=== PATIENT | male | born 1955 | race African-American/Black ===

== ENCOUNTER → 2016-08-12 | Outpatient (CLI) | payer MEDICARE ==
[~2016-08-12] MED LIST: ACHD5005 PO; BP MED; CYCL10TA9 PO; DILT180T PO; DLT30T PO; FENO145T2 PO; IBP800T PO; LISI1TAB10 PO; MELO15TA39 PO; METO-333 PO; METO-352 PO; METO25TA2 PO; PARO20TA4 PO; PARO20TA57 PO; PARO40TA PO; PARO40TA2 PO; RISP3TAB3 PO; RSP2T PO
--- NOTE | 2016-08-12 14:24 | Diagnostic Imaging Report ---
PROCEDURE: US abdomen complete. TECHNIQUE: Multiple real-time grayscale images were obtained over the abdomen in various projections. INDICATION: Hepatitis C. FINDINGS: The pancreas is not well evaluated on this exam. The liver demonstrates fairly homogeneous parenchyma with no focal mass. Hepatopetal flow in the portal vein is seen. Craniocaudal measurement of 18 cm in the liver and is near the upper limits of normal. The gallbladder demonstrates a nonmobile hyperechoic 1 cm lesion and sessile polypoid appearance in the fundus with no associated shadowing and may relate to adherent sludge or a polyp. The CBD is 3 mm in caliber. The gallbladder wall demonstrate [id number]-vw-vmibleyy thickening up to 7 mm. There is no pericholecystic fluid, however. Sonographic Beasley sign is reportedly negative. The spleen is 9.5 cm in length, normal. The aorta is obscured by bowel gas. The visualized portion of the IVC has flow in it. The right kidney is 10.3 cm in length and the left kidney is 9.9 cm in length with no hydronephrosis or focal lesion. No fluid collection or ascites. IMPRESSION: 1. The gallbladder fundus 1 cm hyperechoic lesion with the no shadowing, may relate to adherent sludge or a gallbladder polyp. 2. A bladder wall thickening is seen. This is nonspecific and may relate to chronic hepatic disease. 3. No focal hepatic mass is identified. Dictated by: Dictated on workstation # [id number]
== END ==
LOC: RAD 10:19
PROVIDERS: ATTEND Nurse Practitioner Adult Health
DX: B18.2 Chronic viral hepatitis C (principal)
CPT/HCPCS: 76700

== ENCOUNTER → 2016-11-30 | Outpatient (CLI) | payer MEDICARE ==
[~2016-11-30] MED LIST changes: +GADOXETATE 2.5 MMOL/10 ML (EOVIST) IV ONE
--- NOTE | 2016-11-30 11:57 | Diagnostic Imaging Report ---
PROCEDURE: MR imaging abdomen with and without contrast. TECHNIQUE: Multiplanar, multisequence MR imaging of the abdomen was performed with and without contrast. INDICATION: Elevated AFP. Abnormal ultrasound of the gallbladder, focal sludge. Chronic hepatitis C. 8 mL of Eovist is administered intravenously. FINDINGS: The gallbladder demonstrates no stones or wall thickening. The previously seen focal sludge on ultrasound is not present at this time. There is no extra or intrahepatic biliary dilatation. The liver has homogeneous intensity of its parenchyma with no gross imaging features of cirrhosis. Postcontrast enhancement images demonstrate no enhancing mass. The pancreas demonstrate a pancreatic body 6 mm T2 bright lesion with no enhancement compatible with a tiny cystic lesion, of uncertain significance. The spleen is not enlarged. The portal vein appears patent. The hepatic veins also appear patent. There is no ascites. The abdominal aorta is normal in caliber. No para-aortic significantly enlarged lymph node is seen. The kidneys have symmetric enhancement. No hydronephrosis. IMPRESSION: No significant abnormality. Dictated by: Dictated on workstation # [id number]
== END ==
LOC: RAD 09:07
PROVIDERS: ATTEND Nurse Practitioner Adult Health
DX: R77.2 Abnormality of alphafetoprotein (principal); R93.2 Abnormal findings on diagnostic imaging of liver and biliary tract; B18.9 Chronic viral hepatitis, unspecified
CPT/HCPCS: 74183

== ENCOUNTER → 2016-12-16 | Outpatient (CLI) | payer MEDICARE ==
[~2016-12-16] MED LIST changes: -GADOXETATE 2.5 MMOL/10 ML (EOVIST) IV ONE
--- NOTE | 2016-12-16 14:43 | Diagnostic Imaging Report ---
Indication: Left leg pain for several months AP and lateral views of the left lower leg are obtained. FINDINGS: No acute fracture or dislocation is identified. No abnormal lytic or sclerotic focus is seen, and there is no radiopaque foreign body. IMPRESSION: No acute abnormality. Dictated by: Dictated on workstation # [id number]
== END ==
LOC: RAD 14:28
PROVIDERS: ATTEND Family Medicine
DX: M79.662 Pain in left lower leg (principal)
CPT/HCPCS: 73590

== ENCOUNTER → 2017-02-08 | Outpatient (CLI) | payer MEDICARE ==
--- NOTE | 2017-02-08 16:28 | Diagnostic Imaging Report ---
PROCEDURE: US Bilateral lower extremity arterial. TECHNIQUE: Multiple real-time grayscale images are obtained through both lower extremity arterial systems with color Doppler imaging and color Doppler spectral analysis. INDICATION: Claudication. FINDINGS: The femoropopliteal segments demonstrate no significant plaque seen on grayscale images. Color Doppler demonstrates patency from the common femoral to dorsalis pedis and posterior tibial arteries on both sides. There are triphasic waveforms throughout seen. There is normal range of velocities in the right lower extremity from 62 to 135 cm/s and on the left as well ranging from 57 to 100 cm/s. IMPRESSION: No ultrasound evidence of high-grade stenosis. Dictated by: Dictated on workstation # [id number]
== END ==
LOC: RAD 12:34
PROVIDERS: ATTEND Family Medicine
DX: I73.9 Peripheral vascular disease, unspecified (principal); F17.210 Nicotine dependence, cigarettes, uncomplicated
CPT/HCPCS: 93925

== ENCOUNTER → 2017-07-19 | Outpatient (CLI) | payer MEDICARE ==
[~2017-07-19] VITALS: Ht 167.6 cm; Wt 95.3 kg
[~2017-07-19] MED LIST changes: +REGADENOSON 0.4 MG/5 ML SYR (LEXISCAN) IV ONE
[2017-07-19] MEDS: CATHETER FLUSH 10 ML SYR IV PRN ×2 (11:25→13:07)
[2017-07-19 13:05] VITALS: BP 191/107
--- NOTE | 2017-07-19 19:19 | STRESS TEST ---
DATE OF SERVICE: 07/19/2017 PROCEDURE: Resting and post regadenoson technetium-99m Tetrofosmin SPECT CT imaging. ORDERING PHYSICIAN: Dr. Fleming. PRIMARY PHYSICIAN: Dr. Lara. CLINICAL DIAGNOSES: Shortness of breath, hyperlipidemia, hypertension, paroxysmal atrial fibrillation. Baseline images were carried out after injection of 10.21 mCi of technetium-99m Tetrofosmin. This was followed by 0.4 mg regadenoson and 31.1 mCi of technetium-99m Tetrofosmin for stress imaging. The electrocardiogram showed sinus rhythm with nonspecific T-wave abnormality at baseline. It did not change significantly with the regadenoson infusion. Review of images at rest and following stress does not indicate perfusion defects consistent with significant myocardial ischemia or infarction. Some degree of diaphragmatic attenuation is seen both at rest and following regadenoson infusion. Gated images show normal global left ventricular systolic function with an ejection fraction of 58%. TID is absent (1). CONCLUSIONS: 1. No evidence of any significant myocardial ischemia or infarction on this study. 2. Normal regional wall motion. 3. Normal global left ventricular systolic function with a calculated ejection fraction of 58%. Job ID: [id number] DocumentID: [id number] Dictated Date: 07/19/2017 16:22:46 Criminal Justice Professor Date: 07/19/2017 19:18:24 Dictated By: DEE FLEMING MD, MA, FACP, FACC,
== END ==
LOC: CARD 09:43
PROVIDERS: ATTEND Internal Medicine Cardiovascular Disease
DX: I10 Essential (primary) hypertension (principal); R06.02 Shortness of breath; I48.0 Paroxysmal atrial fibrillation; E66.9 Obesity, unspecified; F17.290 Nicotine dependence, other tobacco product, uncomplicated; E78.5 Hyperlipidemia, unspecified; F31.9 Bipolar disorder, unspecified
CPT/HCPCS: 78452; 93017; 93306

== ENCOUNTER → 2018-02-02 | Outpatient (CLI) | payer MEDICARE ==
[~2018-02-02] MED LIST changes: -REGADENOSON 0.4 MG/5 ML SYR (LEXISCAN) IV ONE
--- NOTE | 2018-02-02 16:31 | Diagnostic Imaging Report ---
INDICATION: Left hip pain FINDINGS: Two views of the left hip show no fracture, dislocation or other acute abnormalities. IMPRESSION: Negative left hip. Dictated by: Dictated on workstation # [id number]
--- NOTE | 2018-02-02 18:17 | Diagnostic Imaging Report ---
CLINICAL INDICATION: Patient complains mostly of left hip pain for seven months. EXAM: X-ray of the lumbar spine, three views. COMPARISON: None. FINDINGS: There is no acute lumbar spine fracture. There is roughly 5 mm of grade 1 anterolisthesis of L2 on L3. There is a transitional lumbosacral vertebra which should be designated as L5. There is appearance of pseudoarticulation of the prominent right and left transverse processes of the L5 vertebra with associated sclerosis. There are mild to moderately hypertrophic spurs anteriorly involving the L3, L4, and L5 vertebrae. There is moderate loss of intervertebral disc height at the L4-L5 level. There is incompletely imaged right curvature of the thoracic spine. Sacroiliac joints show no significant abnormality. IMPRESSION: 1: There is no acute lumbar spine fracture. 2: There is grade 1 anterolisthesis of L2 on L3 with no pars defects seen. 3: There is lumbar spine degenerative disease, most pronounced involving the lower lumbar region. 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 Dictated by: Dictated on workstation # [id number]
== END ==
LOC: RAD 13:31
PROVIDERS: ATTEND Family Medicine
DX: M25.552 Pain in left hip (principal); M43.16 Spondylolisthesis, lumbar region; M47.26 Other spondylosis with radiculopathy, lumbar region
CPT/HCPCS: 72100; 73502

== ENCOUNTER → 2018-02-09 | Outpatient (CLI) | payer MEDICAID, MEDICARE ==
--- NOTE | 2018-02-09 18:54 | Diagnostic Imaging Report ---
PROCEDURE: MRI lumbar spine. TECHNIQUE: Multiplanar, multisequence MRI of the lumbar spine was performed without contrast. EXAMINATION: Chronic low back pain radiating down the left leg. FINDINGS: The alignment of the lumbar spine is normal. The vertebral body heights are well maintained. There is no spondylolysis or spondylolisthesis. No fractures are identified. Conus medullaris is seen at L1 and is normal in appearance. The T12-L1 and L1-2 discs are normal in height, signal intensity and morphology. At L2-3 there is some broad-based annular bulging, facet disease and thickening of the ligament flavum. There is moderate spinal stenosis with encroachment upon the lateral recess, bilaterally. There is mild bilateral neural foraminal encroachment. At L3-4 there is loss of disc height and signal intensity with some broad-based annular bulging. There is facet disease and thickening of the ligamentum flavum. There is mild central spinal stenosis with encroachment upon the lateral recess, bilaterally. There is moderate bilateral neuroforaminal encroachment. At L4-5 there is loss of disc height and signal intensity with some broad-based annular bulging. There is facet disease and thickening of the ligamentum flavum. There is mild central spinal stenosis with encroachment upon the lateral recess, bilaterally. There is moderate bilateral foraminal encroachment. The L5-S1 disc is unremarkable. The abdominal aorta is nonaneurysmal. Kidneys are unremarkable. IMPRESSION: Moderate lumbar spondylosis and multilevel degenerative disc disease, as detailed above. Dictated by: Dictated on workstation # [id number]
== END ==
LOC: RAD 17:36
PROVIDERS: ATTEND Family Medicine
DX: M48.061 Spinal stenosis, lumbar region without neurogenic claudication (principal); M51.16 Intervertebral disc disorders with radiculopathy, lumbar region; M47.26 Other spondylosis with radiculopathy, lumbar region; M99.73 Connective tissue and disc stenosis of intervertebral foramina of lumbar region; M53.86 Other specified dorsopathies, lumbar region
CPT/HCPCS: 72148

== ENCOUNTER 2018-03-01 20:26 | Emergency (ER) | payer MEDICARE ==
[~2018-03-01] VITALS: Ht 167.6 cm; Wt 93.9 kg
--- OUTSIDE RECORDS SUMMARY | 2018-03-01 20:31 | XMS REPORT | Clinical Summary ---
Author Author [facility] Address Unknown Phone Unavailable Care Team Providers Care Windows Server Architect Name Role Phone Lis Candelario MD Unavailable Mary Lara MD PCP Jono Van MD Unavailable Source Comments Some departments are not documenting in the electronic medical record. If you do not see the information that you expected, contact Release of Information in the Health Information Management department at [phone] for further assistance in locating additional records.[facility] Allergies No Known Allergies Current Medications Prescription Sig. Disp. Refills Start End Date Status Date risperiDONE (RISPERDAL) 2 Take 2 mg by mouth twice Active mg tablet daily. diltiazem CD (CARDIZEM Take 180 mg by mouth Active CD) 180 mg capsule daily. diclofenac sodium DR Take 75 mg by mouth twice Active (VOLTAREN) 75 mg tablet daily. Take with food. trihexyphenidyl (ARTANE) Take 2 mg by mouth twice Active 2 mg tablet daily. PARoxetine (PAXIL) 20 mg Take 20 mg by mouth Active tablet daily. metoprolol XL (TOPROL XL) Take 50 mg by mouth Active 50 mg extended release daily. tablet Active Problems Problem Noted Date Elevated AFP 02/01/2017 Chronic hepatitis C without hepatic coma (HCC) 09/08/2016 Tobacco abuse 09/08/2016 History of ETOH abuse 09/08/2016 Type 2 diabetes mellitus without complication (HCC) 09/08/2016 Essential hypertension 09/08/2016 Bipolar affective disorder in remission (HCC) 09/08/2016 Schizophrenia (HCC) 09/08/2016 Immunizations Name Dates Previously Given Next Due Hepatitis B Vaccine Adult 02/01/2017 3 Dose IM Social History Tobacco Use Types Packs/Day Years Used Date Current Every Day Smoker Cigarettes 1 20 Tobacco Cessation: Ready to Quit: Yes Alcohol Use Drinks/Week oz/Week Comments No Sex Assigned at Date Recorded Not on file Last Filed Vital Signs Vital Sign Reading Time Taken Blood Pressure 144/91 02/01/2017 12:14 PM CDT Pulse 69 02/01/2017 12:11 PM CDT Temperature 37.6 C (99.6 F) 02/01/2017 12:11 PM CDT Respiratory Rate 16 02/01/2017 12:11 PM CDT Oxygen Saturation 98% 02/01/2017 12:11 PM CDT Inhaled Oxygen - - Concentration Weight 97 kg (213 lb 12.8 oz) 02/01/2017 12:11 PM CDT Height 167.6 cm (5' 5.98") 02/01/2017 12:11 PM CDT Body Mass Index 34.52 02/01/2017 12:11 PM CDT Plan of Treatment Health Maintenance Due Date Last Done Comments PHYSICAL (COMPREHENSIVE) 10/10/1963 EXAM PERTUSSIS VACCINE 10/10/1967 TETANUS VACCINE 1973 DILATED EYE EXAM 1974 FOOT EXAM 1974 HBA1C 1974 MICROALBUMIN 1974 PNEUMONIA VACCINE (DM) 1974 COLORECTAL CANCER 2006 SCREENING SHINGLES RECOMBINANT 2006 VACCINE (1 of 2) INFLUENZA VACCINE 12/14/2017 HIV SCREENING Completed 08/03/2016, 01/05/2012 Results Not on filefrom Last 3 Months
--- OUTSIDE RECORDS SUMMARY | 2018-03-01 20:32 | XMS REPORT ---
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 397022058 Problem Tardive dyskinesia G24.01 Active 736922766 Problem Schizoaffective disorder, unspecified condition F25.9 Active 97843330 ALLERGIES No Known Allergies ENCOUNTERS Encounter Location Date Diagnosis [facility] [id number] [place] [id number] Oct, Dental examination Z01.20 [facility] [address] [address] Jul, [facility] [address] [address] Jul, Encounter for immunization Z23 [facility] [address] [address] May, [facility] [address] [address] May, 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 and Tardive dyskinesia G24.01 [facility] [address] [address] Apr, Schizoaffective disorder, unspecified condition F25.9 [facility] [address] [address] Feb, Encounter for immunization Z23 [facility] [address] [address] Jul, [facility] [address] [place] [address] Feb, [facility] [address] [facility] [id number] [address] Mar, [facility] [address] [facility] [id number], [place] [address] Feb, IMMUNIZATIONS No Known Immunizations SOCIAL HISTORY Never Assessed REASON FOR VISIT roosevelt/abscess PLAN OF CARE Activity Details Follow Up prn Reason:CANDIDA with HYG VITAL SIGNS Blood pressure systolic 140 mmHg 2017-10-28 Blood pressure diastolic 82 mmHg 2017-10-28 MEDICATIONS Medication Instructions Dosage Frequency Start Date End Date Duration Status Amoxicillin 500 mg Orally every 8 hrs 1 capsule 8h 07 days Active Ingrezza 40 MG Orally Once a day take 40mg every night for one week then take 80mg every night 24h May, 30 day(s) Active Trihexyphenidyl HCl 2 MG Orally 2 times a day 1 tablet with meals 12h Active Toprol XL 50 MG Orally Once a day 1 tablet 24h Active Risperdal 2 MG Orally 2 times a day 1 tablet 12h Active Risperidone Active Diclofenac 75mg Orally 2 times a day 1 tablet 12h Not-Taking Paxil 20 MG Orally Once a day 1 tablet in the morning 24h Active Lyrica 75 MG Orally Twice a day 2 capsules 12h Not-Taking Cardizem LA 180 MG Orally Once a day 1 tablet at the same time each day 24h Active RESULTS No Results PROCEDURES Procedure Date Ordered Result Body Site LTD ORAL EVALUATION - PROBLEM FOCUS October 28, 2017 INTRAORL-PERIAPICAL 1 FILM [id number] October 28, 2017 INSTRUCTIONS MEDICATIONS ADMINISTERED No Known Medications MEDICAL (GENERAL) HISTORY Type Description Date Medical History HTN
--- OUTSIDE RECORDS SUMMARY | 2018-03-01 20:32 | XMS REPORT ---
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 054520328 Problem Tardive dyskinesia G24.01 Active 369295480 Problem Schizoaffective disorder, unspecified condition F25.9 Active 71104564 ALLERGIES No Information ENCOUNTERS Encounter Location Date Diagnosis [facility] [id number] [place] [id number] Oct, Dental examination Z01.20 [facility] [address] [address] Jul, [facility] [address] [address] Jul, Encounter for immunization Z23 [facility] [id number] [place] [address] May, [facility] [id number] [place] [address] May, 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 [id number] [place] [address] Feb, [facility] [address] [facility] [id number] [address] Mar, [facility] [address] [facility] [id number] [place] [address] Feb, IMMUNIZATIONS No Known Immunizations SOCIAL HISTORY Never Assessed REASON FOR VISIT B[facility] CARE VITAL SIGNS MEDICATIONS Unknown Medications RESULTS No Results PROCEDURES No Known procedures INSTRUCTIONS MEDICATIONS ADMINISTERED No Known Medications MEDICAL (GENERAL) HISTORY Type Description Date Medical History HTN
--- OUTSIDE RECORDS SUMMARY | 2018-03-01 20:32 | XMS REPORT ---
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 and Tardive dyskinesia G24.01 [facility] [id number] [place] [address] Apr, Schizoaffective disorder, unspecified condition F25.9 [facility] [id number] [place] [address] Feb, Encounter for immunization Z23 [facility] [id number] [place] [address] Jul, [facility] [address] [facility] [id number] [place] [address] Feb, [facility] [address] [facility] [id number] [place] Mar, [facility] [address] [facility] [id number] [place] Feb, IMMUNIZATIONS Vaccine Route Administration Date Status HEP B (ADULT) IM Intramuscular August 03, 2017 Administered SOCIAL HISTORY Never Assessed REASON FOR VISIT Immunization(s)--[facility] PLAN OF CARE VITAL SIGNS MEDICATIONS Unknown Medications RESULTS No Results PROCEDURES Procedure Date Ordered Result Body Site HEP B (ADULT) August 03, 2017 SINGLE IMMUNIZATION ADMIN August 03, 2017 INSTRUCTIONS MEDICATIONS ADMINISTERED No Known Medications MEDICAL (GENERAL) HISTORY Type Description Date Medical History HTN
--- OUTSIDE RECORDS SUMMARY | 2018-03-01 20:32 | XMS REPORT ---
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 604769782 Problem Tardive dyskinesia G24.01 Active 308161715 Problem Schizoaffective disorder, unspecified condition F25.9 Active 28868846 ALLERGIES No Information ENCOUNTERS Encounter Location Date Diagnosis [place] [id number] [place] [address] Jul, [facility] [address] [address] Jul, Encounter for immunization Z23 [facility] [id number] [place] [address] May, [facility] [id number] [place] [address] May, 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 and Tardive dyskinesia G24.01 [facility] [id number] [place] [address] Apr, Schizoaffective disorder, unspecified condition F25.9 [facility] [id number] [place] [address] Feb, Encounter for immunization Z23 [facility] [id number] [place] [address] Jul, [facility] [id number] [place] [address] Feb, [facility] [id number] [place] [address] Mar, [facility] [address] [facility] [id number], [place] [address] Feb, IMMUNIZATIONS No Known Immunizations SOCIAL HISTORY Never Assessed REASON FOR VISIT BH intake, Hears voices and "uncontrollable crying." PLAN OF CARE Activity Details Follow Up prn Reason: VITAL SIGNS MEDICATIONS Medication Instructions Dosage Frequency Start Date End Date Duration Status Risperidone Active RESULTS No Results PROCEDURES Procedure Date Ordered Result Body Site [facility] VISIT MENTAL HEALTH ESTAB PT Apr 19, 2017 Psych diagnostic evaluation, established patient Apr 19, 2017 INSTRUCTIONS MEDICATIONS ADMINISTERED No Known Medications MEDICAL (GENERAL) HISTORY Type Description Date Medical History HTN
--- OUTSIDE RECORDS SUMMARY | 2018-03-01 20:32 | XMS REPORT ---
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 434913808 Problem Tardive dyskinesia G24.01 Active 429091054 Problem Schizoaffective disorder, unspecified condition F25.9 Active [id number] ALLERGIES No Known Allergies ENCOUNTERS Encounter Location Date Diagnosis [facility] [id number] [place] [id number] Oct, Dental examination Z01.20 [facility] [id number] [place] [phone] Jul, [facility] [address] [address] Jul, Encounter for immunization Z23 [facility] [id number] [place] [phone] May, [facility] [id number] [place] [phone] May, 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 and Tardive dyskinesia G24.01 [facility] [id number] [place] [address] Apr, Schizoaffective disorder, unspecified condition F25.9 [facility] [id number] [place] [phone] Feb, Encounter for immunization Z23 [facility] [id number] [place] [phone] Jul, [facility] [address] [facility] [id number] [place] [address] Feb, [facility] [address] [facility] [id number] Mar, [facility] [address] [facility] [id number], [place] [address] Feb, IMMUNIZATIONS No Known Immunizations SOCIAL HISTORY Never Assessed REASON FOR VISIT intake-Dayday [facility] PLAN OF CARE Activity Details Follow Up 4 Weeks Reason: VITAL SIGNS Height 66.5 in 2017-05-19 Weight 210.2 lbs 2017-05-19 Heart Rate 74 bpm 2017-05-19 Respiratory Rate 18 2017-05-19 BMI 33.42 kg/m2 2017-05-19 Blood pressure systolic 132 mmHg 2017-05-19 Blood pressure diastolic 78 mmHg 2017-05-19 MEDICATIONS Medication Instructions Dosage Frequency Start Date End Date Duration Status Risperidone Active Cardizem LA 180 MG Orally Once a day 1 tablet at the same time each day 24h Active Toprol XL 50 MG Orally Once a day 1 tablet 24h Active Risperdal 2 MG Orally 2 times a day 1 tablet 12h Active Paxil 20 MG Orally Once a day 1 tablet in the morning 24h Active Diclofenac 75mg Orally 2 times a day 1 tablet 12h Not-Taking Lyrica 75 MG Orally Twice a day 2 capsules 12h Not-Taking Trihexyphenidyl HCl 2 MG Orally 2 times a day 1 tablet with meals 12h Active Ingrezza 40 MG Orally Once a day take 40mg every night for one week then take 80mg every night 24h May, 30 day(s) Active RESULTS No Results PROCEDURES Procedure Date Ordered Result Body Site [facility] V[facility]IT ESTABLISHED PATIENT May 19, 2017 INSTRUCTIONS MEDICATIONS ADMINISTERED No Known Medications MEDICAL (GENERAL) HISTORY Type Description Date Medical History HTN
--- OUTSIDE RECORDS SUMMARY | 2018-03-01 20:32 | XMS REPORT ---
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 602192504 Problem Tardive dyskinesia G24.01 Active 238735861 Problem Schizoaffective disorder, unspecified condition F25.9 Active [id number] ALLERGIES No Information ENCOUNTERS Encounter Location Date Diagnosis [facility] [id number] [place] [id number] Oct, Dental examination Z01.20 [facility] [address] [address] Jul, [facility] [address] [address] Jul, Encounter for immunization Z23 [facility] [id number] [place] [address]- [phone] May, [facility] [id number] [place] [address] 9[address]69- [address] May, 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 and Tardive dyskinesia G24.01 [facility] [id number] [place] [address]- [phone] Apr, Schizoaffective disorder, unspecified condition F25.9 [facility] [id number] [place] [address] 96[address]- [address] Feb, Encounter for immunization Z23 [facility] [id number] [place] [address] 270[address]- [address] Jul, [facility] [address] [facility] [id number] [place], [place] [address] Feb, [facility] [address] [facility] [id number] [address] Mar, [facility] [address] [facility] [id number] [place] [address] Feb, IMMUNIZATIONS No Known Immunizations SOCIAL HISTORY Never Assessed REASON FOR VISIT FYI PLAN OF CARE VITAL SIGNS MEDICATIONS Unknown Medications RESULTS No Results PROCEDURES No Known procedures INSTRUCTIONS MEDICATIONS ADMINISTERED No Known Medications MEDICAL (GENERAL) HISTORY Type Description Date Medical History HTN
--- OUTSIDE RECORDS SUMMARY | 2018-03-01 20:33 | XMS REPORT | Continuity of Care Document ---
Author Author [facility] Organization [facility] Address Unknown Phone Unavailable Allergies Active Description Code Type Severity Reaction Onset Reported/Identified Relationship to Patient Clinical Status Yes No Known Drug Allergies [id number] Drug Allergy Unknown N/A 02/10/2016 Medications There is no data. Problems Date Dx Coded Attending Type Code Diagnosis Diagnosed By 10/05/2010 Ot 782.2 LOCAL SUPRFICIAL SWELLNG 12/07/2010 Ot 272.4 HYPERLIPIDEMIA NEC/NOS 12/07/2010 Ot 305.1 TOBACCO USE DISORDER 12/07/2010 Ot 401.9 HYPERTENSION NOS 12/07/2010 Ot 427.31 ATRIAL FIBRILLATION 12/07/2010 Ot 794.30 ABN CARDIOVASC STUDY NOS 12/07/2010 Ot V58.69 OTH MED,LT, CURRENT USE 03/22/2011 Ot 786.50 CHEST PAIN NOS 03/22/2011 Ot 786.52 PAINFUL RESPIRATION 12/22/2011 Ot 724.4 LUMBOSACRAL NEURITIS NOS 12/22/2011 Ot V57.1 PHYSICAL THERAPY NEC 12/19/2012 EMILIANO SUAZO DO Ot 211.3 BENIGN NEOPLASM LG BOWEL 12/19/2012 EMILIANO SUAZO DO Ot 578.1 BLOOD IN STOOL 12/19/2012 EMILIANO SUAZO DO Ot V16.0 FAMILY HX-GI MALIGNANCY 07/06/2014 Ot 401.9 07/06/2014 Ot 427.31 07/06/2014 Ot 396.3 07/06/2014 Ot 397.0 07/06/2014 Ot 401.9 07/06/2014 Ot 427.31 07/06/2014 Ot 428.30 07/06/2014 Ot 070.70 07/06/2014 EMILIANO SUAZO DO Ot V72.84 07/08/2014 Ot 786.05 07/08/2014 Ot 786.2 07/10/2014 Ot 786.05 07/10/2014 Ot 786.2 08/15/2014 Ot 401.9 08/15/2014 Ot 427.31 08/15/2014 Ot 396.3 08/15/2014 Ot 397.0 08/15/2014 Ot 401.9 08/15/2014 Ot 427.31 08/15/2014 Ot 428.30 08/15/2014 Ot 070.70 08/15/2014 EMILIANO SUAZO DO Ot V72.84 08/15/2014 Ot 786.05 08/15/2014 Ot 786.2 08/15/2014 RAFAELA JETER, DAPHNIE Reyes Ot 327.23 OBSTRUCTIVE SLEEP APNEA (ADULT) (PEDIATR 12/20/2014 RAFAELA JETER, DAPHNIE L Ot 305.1 12/20/2014 RAFAELA JETER, DAPHNIE L Ot 786.05 12/20/2014 RAFAELA JETER, DAPHNIE Reyes Ot 305.1 12/20/2014 RAFAELA JETER, DAPHNIE Reyes Ot 786.05 01/10/2015 RAFAELA JETER, DAPHNIE Reyes Ot 305.1 01/10/2015 RAFAELA JETER, DAPHNIE Reyes Ot 786.05 01/15/2015 RAFAELA JETER, DAPHNIE L Ot 305.1 01/15/2015 RAFAELA JETER, DAPHNIE Reyes Ot 786.05 02/05/2016 Ot 401.9 HYPERTENSION NOS 02/05/2016 Ot 427.31 ATRIAL FIBRILLATION 02/05/2016 Ot 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 02/05/2016 Ot 397.0 TRICUSPID VALVE DISEASE 02/05/2016 Ot 401.9 HYPERTENSION NOS 02/05/2016 Ot 427.31 ATRIAL FIBRILLATION 02/05/2016 Ot 428.30 UNSPEC DIASTOLIC HRT FAILURE 02/05/2016 Ot 070.70 UNSPECIFIED VIRAL HEPATITIS C WITHOUT HE 02/05/2016 EMILIANO SUAZO DO Ot V72.84 EXAM PRE-OPERATIVE NOS 02/05/2016 Ot 786.05 SHORTNESS OF BREATH 02/05/2016 Ot 786.2 COUGH 02/05/2016 RAFAELA JETER, DAPHNIE Reyes Ot 305.1 TOBACCO USE DISORDER 02/05/2016 RAFAELA JETER, DAPHNIE Reyes Ot 786.05 SHORTNESS OF BREATH 02/06/2016 EMILIANO SUAZO DO Ot Z01.818 ENCOUNTER FOR OTHER PREPROCEDURAL EXAMIN 02/06/2016 EMILIANO SUAZO DO Ot Z12.11 ENCOUNTER FOR SCREENING FOR MALIGNANT NE 02/10/2016 Ot 401.9 HYPERTENSION NOS 02/10/2016 Ot 427.31 ATRIAL FIBRILLATION 02/10/2016 Ot 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 02/10/2016 Ot 397.0 TRICUSPID VALVE DISEASE 02/10/2016 Ot 401.9 HYPERTENSION NOS 02/10/2016 Ot 427.31 ATRIAL FIBRILLATION 02/10/2016 Ot 428.30 UNSPEC DIASTOLIC HRT FAILURE 02/10/2016 Ot 070.70 UNSPECIFIED VIRAL HEPATITIS C WITHOUT HE 02/10/2016 EMILIANO SUAZO DO Ot V72.84 EXAM PRE-OPERATIVE NOS 02/10/2016 Ot 786.05 SHORTNESS OF BREATH 02/10/2016 Ot 786.2 COUGH 02/10/2016 RAFAELA JETER, DAPHNIE Reyes Ot 305.1 TOBACCO USE DISORDER 02/10/2016 RAFAELA JETER, DAPHNIE Reyes Ot 786.05 SHORTNESS OF BREATH 02/10/2016 EMILIANO SUAZO DO Ot Z01.818 ENCOUNTER FOR OTHER PREPROCEDURAL EXAMIN 02/10/2016 EMILIANO SUAZO DO Ot Z12.11 ENCOUNTER FOR SCREENING FOR MALIGNANT NE 02/10/2016 EMILIANO SUAZO DO Ot D12.5 BENIGN NEOPLASM OF SIGMOID COLON 02/10/2016 EMILIANO SUAZO DO Ot K62.1 RECTAL POLYP 02/10/2016 EMILIANO SUAZO DO Ot Z12.11 ENCOUNTER FOR SCREENING FOR MALIGNANT NE 02/10/2016 EMILIANO SUAZO DO Ot Z80.0 FAMILY HISTORY OF MALIGNANT NEOPLASM OF 02/12/2016 EMILIANO SUAZO DO Ot D12.5 BENIGN NEOPLASM OF SIGMOID COLON 02/12/2016 EMILIANO SUAZO DO Ot K62.1 RECTAL POLYP 02/12/2016 EMILIANO SUAZO DO Ot Z12.11 ENCOUNTER FOR SCREENING FOR MALIGNANT NE 02/12/2016 EMILIANO SUAZO DO Ot Z80.0 FAMILY HISTORY OF MALIGNANT NEOPLASM OF 02/17/2016 EMILIANO SUAZO DO Ot D12.5 BENIGN NEOPLASM OF SIGMOID COLON 02/17/2016 EMILIANO SUAZO DO Ot K62.1 RECTAL POLYP 02/17/2016 EMILIANO SUAZO DO Ot Z12.11 ENCOUNTER FOR SCREENING FOR MALIGNANT NE 02/17/2016 EMILIANO SUAZO DO Ot Z80.0 FAMILY HISTORY OF MALIGNANT NEOPLASM OF 02/25/2016 EMILIANO SUAZO DO Ot D12.5 BENIGN NEOPLASM OF SIGMOID COLON 02/25/2016 EMILIANO SUAZO DO Ot K62.1 RECTAL POLYP 02/25/2016 EMILIANO SUAZO DO Ot Z12.11 ENCOUNTER FOR SCREENING FOR MALIGNANT NE 02/25/2016 EMILIANO SUAZO DO Ot Z80.0 FAMILY HISTORY OF MALIGNANT NEOPLASM OF 08/13/2016 NIRALI CHAMBERS Ot B18.2 CHRONIC VIRAL HEPATITIS C 09/03/2016 NIRALI CHAMBERS Ot B18.2 CHRONIC VIRAL HEPATITIS C 11/30/2016 Ot 070.70 UNSPECIFIED VIRAL HEPATITIS C WITHOUT HE 11/30/2016 EMILIANO SUAZO DO Ot V72.84 EXAM PRE-OPERATIVE NOS 11/30/2016 Ot 786.05 SHORTNESS OF BREATH 11/30/2016 Ot 786.2 COUGH 11/30/2016 RAFAELA JETER, DAPHNIE Reyes Ot 305.1 TOBACCO USE DISORDER 11/30/2016 RAFAELA JETER, DAPHNIE Reyes Ot 786.05 SHORTNESS OF BREATH 11/30/2016 EMILIANO SUAZO DO Ot Z01.818 ENCOUNTER FOR OTHER PREPROCEDURAL EXAMIN 11/30/2016 EMILIANO SUAZO DO Ot Z12.11 ENCOUNTER FOR SCREENING FOR MALIGNANT NE 11/30/2016 NIRALI CHAMBERS Ot B18.2 CHRONIC VIRAL HEPATITIS C 12/06/2016 NIRALI CHAMBERS Ot B18.9 CHRONIC VIRAL HEPATITIS, UNSPECIFIED 12/06/2016 NIRALI CHAMBERS Ot R77.2 ABNORMALITY OF ALPHAFETOPROTEIN 12/06/2016 NIRALI CHAMBERS Ot R93.2 ABNORMAL FINDINGS ON DX IMAGING OF LIVER 12/16/2016 Ot 070.70 UNSPECIFIED VIRAL HEPATITIS C WITHOUT HE 12/16/2016 EMILIANO SUAZO DO Ot V72.84 EXAM PRE-OPERATIVE NOS 12/16/2016 Ot 786.05 SHORTNESS OF BREATH 12/16/2016 Ot 786.2 COUGH 12/16/2016 RAFAELA JETER, DAPHNIE Reyes Ot 305.1 TOBACCO USE DISORDER 12/16/2016 RAFAELA JETER, DAPHNIE Reyes Ot 786.05 SHORTNESS OF BREATH 12/16/2016 EMILIANO SUAZO DO Ot Z01.818 ENCOUNTER FOR OTHER PREPROCEDURAL EXAMIN 12/16/2016 EMILIANO SUAZO DO Ot Z12.11 ENCOUNTER FOR SCREENING FOR MALIGNANT NE 12/16/2016 NIRALI CHAMBERS Rajeev SENIOR MOBILE WEB DEVELOPER Ot B18.2 CHRONIC VIRAL HEPATITIS C 12/16/2016 NIRALI CHAMBERS Rajeev SENIOR MOBILE WEB DEVELOPER Ot B18.9 CHRONIC VIRAL HEPATITIS, UNSPECIFIED 12/16/2016 NIRALI CHAMBERS Rajeev SENIOR MOBILE WEB DEVELOPER Ot R77.2 ABNORMALITY OF ALPHAFETOPROTEIN 12/16/2016 NIRALI CHAMBERS Rajeev SENIOR MOBILE WEB DEVELOPER Ot R93.2 ABNORMAL FINDINGS ON DX IMAGING OF LIVER 12/22/2016 PORSHA CHAMBERSJEAN-PAUL Boo SENIOR MOBILE WEB DEVELOPER Ot B18.9 CHRONIC VIRAL HEPATITIS, UNSPECIFIED 12/22/2016 NIRALI CHAMBERS Rajeev SENIOR MOBILE WEB DEVELOPER Ot R77.2 ABNORMALITY OF ALPHAFETOPROTEIN 12/22/2016 NIRALI CHAMBERS Rajeev SENIOR MOBILE WEB DEVELOPER Ot R93.2 ABNORMAL FINDINGS ON DX IMAGING OF LIVER 01/11/2017 RAFAELA JETER, DAPHNIE Reyes Ot M79.662 PAIN IN LEFT LOWER LEG 02/08/2017 RAFAELA JETER, DAPHNIE Reyes Ot I73.9 PERIPHERAL VASCULAR DISEASE, UNSPECIFIED 03/01/2017 DAPHNIE RUSSO MD Ot F17.210 NICOTINE DEPENDENCE, CIGARETTES, UNCOMPL 03/01/2017 DAPHNIE RUSSO MD Ot I73.9 PERIPHERAL VASCULAR DISEASE, UNSPECIFIED 07/20/2017 XIMENA JETER FACC, ALI FACP CCDS Ot E66.9 OBESITY, UNSPECIFIED 07/20/2017 XIMENA JETER FACC, ALI FACP CCDS Ot E78.5 HYPERLIPIDEMIA, UNSPECIFIED 07/20/2017 XIMENA JETER FACC, ALI FACP CCDS Ot F17.290 NICOTINE DEPENDENCE, OTHER TOBACCO PRODU 07/20/2017 XIMENA JETER FACC, ALI FACP CCDS Ot F31.9 BIPOLAR DISORDER, UNSPECIFIED 07/20/2017 XIMENA JETER FACC, ALI FACP CCDS Ot I10 ESSENTIAL (PRIMARY) HYPERTENSION 07/20/2017 XIMENA JETER FACC, ALI FACP CCDS Ot I48.0 PAROXYSMAL ATRIAL FIBRILLATION 07/20/2017 XIMENA JETER FACC, ALI FACP CCDS Ot R06.02 SHORTNESS OF BREATH 08/09/2017 XIMENA JETER FACC, ALI FACP CCDS Ot E66.9 OBESITY, UNSPECIFIED 08/09/2017 XIMENA JETER FACC, ALI FACP CCDS Ot E78.5 HYPERLIPIDEMIA, UNSPECIFIED 08/09/2017 XIMENA JETER FACC, ALI FACP CCDS Ot F17.290 NICOTINE DEPENDENCE, OTHER TOBACCO PRODU 08/09/2017 XIMENA JETER FAC, ALI FACP CCDS Ot F31.9 BIPOLAR DISORDER, UNSPECIFIED 08/09/2017 XIMENA JETER FACJeff, ALI FACP CCDS Ot I10 ESSENTIAL (PRIMARY) HYPERTENSION 08/09/2017 XIMENA JETER FACC, ALI FACP CCDS Ot I48.0 PAROXYSMAL ATRIAL FIBRILLATION 08/09/2017 XIMENA JETER FACC, DEE FACP CCDS Ot R06.02 SHORTNESS OF BREATH 02/02/2018 EMILIANO SUAZO DO Ot V72.84 EXAM PRE-OPERATIVE NOS 02/02/2018 Ot 786.05 SHORTNESS OF BREATH 02/02/2018 Ot 786.2 COUGH 02/02/2018 RAFAELA JETER, DAPHNIE Reyes Ot 305.1 TOBACCO USE DISORDER 02/02/2018 RAFAELA JETER, DAPHNIE Reyes Ot 786.05 SHORTNESS OF BREATH 02/02/2018 EMILIANO SUAZO DO Ot Z01.818 ENCOUNTER FOR OTHER PREPROCEDURAL EXAMIN 02/02/2018 EMILIANO SUAZO DO Ot Z12.11 ENCOUNTER FOR SCREENING FOR MALIGNANT NE 02/02/2018 NIRALI CHAMBERS SENIOR MOBILE WEB DEVELOPER Ot B18.2 CHRONIC VIRAL HEPATITIS C 02/02/2018 NIRALI CHAMBERS SENIOR MOBILE WEB DEVELOPER Ot B18.9 CHRONIC VIRAL HEPATITIS, UNSPECIFIED 02/02/2018 NIRALI CHAMBERS SENIOR MOBILE WEB DEVELOPER Ot R77.2 ABNORMALITY OF ALPHAFETOPROTEIN 02/02/2018 NIRALI CHAMBERS SENIOR MOBILE WEB DEVELOPER Ot R93.2 ABNORMAL FINDINGS ON DX IMAGING OF LIVER 02/02/2018 RAFAEAL JETER, DAPHNIE Reyes Ot M79.662 PAIN IN LEFT LOWER LEG 02/02/2018 RAFAELA JETER, DAPHNIE L Ot F17.210 NICOTINE DEPENDENCE, CIGARETTES, UNCOMPL 02/02/2018 RAFAELA JETER, DAPHNIE Reyes Ot I73.9 PERIPHERAL VASCULAR DISEASE, UNSPECIFIED 02/02/2018 XIMENA JETER FACC, DEE FACP CCDS Ot E66.9 OBESITY, UNSPECIFIED 02/02/2018 XIMENA JETER FACC, ALI FACP CCDS Ot E78.5 HYPERLIPIDEMIA, UNSPECIFIED 02/02/2018 XIMENA JETER FACC, ALI FACP CCDS Ot F17.290 NICOTINE DEPENDENCE, OTHER TOBACCO PRODU 02/02/2018 XIMENA JETER FACC, DEE FACP CCDS Ot F31.9 BIPOLAR DISORDER, UNSPECIFIED 02/02/2018 XIMENA JETER [facility], ALI FACP CCDS Ot I10 ESSENTIAL (PRIMARY) HYPERTENSION 02/02/2018 XIMENA JETER [facility], ALI FACP CCDS Ot I48.0 PAROXYSMAL ATRIAL FIBRILLATION 02/02/2018 XIMENA JETER [facility], ALI FACP CCDS Ot R06.02 SHORTNESS OF BREATH 02/03/2018 DAPHNIE RUSSO MD L Ot M25.552 PAIN IN LEFT HIP 02/03/2018 DAPHNIE RUSSO MD L Ot M43.16 SPONDYLOLISTHESIS, LUMBAR REGION 02/03/2018 DAPHNIE RUSSO MD L Ot M47.26 OTHER SPONDYLOSIS WITH RADICULOPATHY, JARED 02/10/2018 DAPHNIE RUSSO MD L Ot M47.26 OTHER SPONDYLOSIS WITH RADICULOPATHY, JARED 02/10/2018 DAPHNIE RUSSO MD L Ot M48.061 SPINAL STENOSIS, LUMBAR REGION WITHOUT N 02/10/2018 DAPHNIE RUSSO MD L Ot M51.16 INTERVERTEBRAL DISC DISORDERS W RADICULO 02/10/2018 DAPHNIE RUSSO MD L Ot M53.86 OTHER SPECIFIED DORSOPATHIES, LUMBAR REG 02/10/2018 DAPHNIE RUSSO MD L Ot M99.73 CONN TISS AND DISC STENOS OF INTVRT FORA 02/22/2018 DAPHNIE RUSSO MD L Ot M25.552 PAIN IN LEFT HIP 02/22/2018 DAPHNIE RUSSO MD L Ot M43.16 SPONDYLOLISTHESIS, LUMBAR REGION 02/22/2018 DAPHNIE RUSSO MD L Ot M47.26 OTHER SPONDYLOSIS WITH RADICULOPATHY, JARED Procedures There is no data. Results There is no data. Encounters ACCT No. Visit Date/Time Discharge Status Pt. Type Provider Facility Loc./Unit Complaint [id number] 02/09/2018 17:36:00 02/09/2018 23:59:59 CLS Outpatient DAPHNIE RUSSO MD [facility] RAD DDD L SPINE,LUMBAR RADICULOPATHY LT HIP [id number] 02/02/2018 13:31:00 02/02/2018 23:59:59 CLS Outpatient DAPHNIE RUSSO MD [facility] RAD LL HIP PAIN [id number] 07/19/2017 09:43:00 07/19/2017 23:59:59 CLS Outpatient XIMENA JETER FACCDEE FACP CCDS [facility] CARD R06.02 SOB [id number] 02/08/2017 12:34:00 02/08/2017 23:59:59 CLS Outpatient DAPHNIE RUSSO MD [facility] RAD CLAUDICATION, LE PAIN , TOBACCOISM [id number] 12/16/2016 14:28:00 12/16/2016 23:59:59 CLS Outpatient DAPHNIE RUSSO MD [facility] RAD L TIBIAL PAIN [id number] 11/30/2016 09:07:00 11/30/2016 23:59:59 CLS Outpatient NIRALI CHAMBERS [facility] RAD ELEVATED AFP R77.2, ABNORMAL GB SONO R93.2 [id number] 08/12/2016 10:19:00 08/12/2016 23:59:59 CLS Outpatient NIRALI CHAMBERS [facility] RAD CHRONIC HEP C [id number] 02/10/2016 07:39:00 02/10/2016 10:10:00 DIS Outpatient EMILIANO SUAZO DO [facility] SDC SCREENING [id number] 02/05/2016 05:42:00 02/05/2016 23:59:59 CLS Outpatient EMILIANO SUAZO DO [facility] PREOP SCREENING [id number] 12/16/2014 16:45:00 12/16/2014 23:59:59 CLS Outpatient DAPHNIE RUSSO MD [facility] RT TOBACCOISM SOA [id number] 08/15/2014 15:30:00 08/15/2014 16:13:00 DIS Outpatient DAPHNIE RUSSO MD [facility] SLEEP SNORING,EDS [id number] 12/19/2012 12:29:00 12/19/2012 16:15:00 DIS Outpatient EMILIANO SUAZO DO [facility] BLOODY STOOLS,FAMILY HX COLON CANCER [id number] 12/14/2012 07:13:00 12/14/2012 23:59:59 CLS Outpatient EMILIANO SUAZO DO [facility] PREOP BLOODY STOOLS; FAMILY HX COLON CANCER [id number] 07/06/2014 11:43:00 Document Registration [id number] 12/22/2011 12:36:00 Document Registration [id number] 12/07/2011 08:19:00 Document Registration [id number] 03/22/2011 08:55:00 Document Registration [id number] 12/07/2010 08:10:00 Document Registration [id number] 10/23/2010 12:25:00 Document Registration [id number] 10/22/2010 12:56:00 Document Registration [id number] 10/05/2010 13:48:00 Document Registration [id number] 10/28/2017 14:30:00 10/28/2017 23:59:59 CLS Outpatient SREEKANTH MCCAULEY APRN [facility]
--- NOTE | 2018-03-01 20:41 | ED EENT ---
History of Present Illness General Stated Complaint: NOSE BLEED Source: patient Exam Limitations: no limitations History of Present Illness Date Seen by Provider: Mar 01, 2018 Time Seen by Provider: 20:40 Initial Comments Clonidine to ER with a left-sided nosebleed intermittently since this morning. He does not have a history of this. He does have a history of hypertension and atrial fibrillation. He does take Eliquis Timing/Duration: abrupt Severity: moderate Location: nose Prearrival Treatment: squeezing nostrils Allergies and Home Medications Allergies Coded Allergies: No Known Drug Allergies (Verified , 02/10/16) Home Medications Diltiazem HCl 180 Mg Tab.er.24h, 180 MG PO DAILY, (Reported) Fenofibrate,Micronized 145 Mg Tablet, 145 MG PO HS, (Reported) Meloxicam 15 Mg Tablet, 15 MG PO DAILY, (Reported) Metoprolol Succinate 50 Mg Tab.er.24h, 50 MG PO DAILY, (Reported) Paroxetine HCl 40 Mg Tablet, 40 MG PO DAILY PRN, (Reported) Patient Home Medication List Home Medication List Reviewed: Yes Review of Systems Review of Systems Constitutional: see HPI Eyes: No Symptoms Reported Ears: No Symptoms Reported Nose: see HPI, epistaxis Mouth: no symptoms reported Throat: no symptoms reported Respiratory: no symptoms reported Cardiovascular: no symptoms reported Musculoskeletal: no symptoms reported Past Jcziodj-Bpeueu-Whyxuc Hx Patient Social History Type Used: Cigarettes Recent Foreign Travel: No Contact w/Someone Who Travel: No Physical Exam Vital Signs Vital Signs - First Documented 03/01/18 20:31 Temp 96.9 Pulse 80 Resp 16 B/P (MAP) 201/114 (143) Pulse Ox 99 O2 Delivery Room Air Height, Weight, BMI Height: 5'6.00" Weight: 210lbs. 0.0oz. [id number]; 33.9 BMI Method: General Appearance: WD/WN, no apparent distress Eyes: bilateral eye normal inspection, bilateral eye PERRL, bilateral eye EOMI Ears: bilateral ear auricle normal, bilateral ear canal normal, bilateral ear TM normal Nose: active bleeding Neck: non-tender, full range of motion Respiratory: no respiratory distress, no accessory muscle use Gastrointestinal: normal bowel sounds, non tender Neurologic/Psychiatric: alert, normal mood/affect Skin: normal color, warm/dry Progress/Results/Core Measures Results/Orders Lab Results Laboratory Tests Test 03/01/18 20:48 Range/Units White Blood Count 9.5 4.3-11.0 10^3/uL Red Blood Count 4.07 L 4.35-5.85 10^6/uL Hemoglobin 14.1 13.3-17.7 G/DL Hematocrit 38 L 40-54 % Mean Corpuscular Volume 94 80-99 FL Mean Corpuscular Hemoglobin 35 H 25-34 PG Mean Corpuscular Hemoglobin Concent 37 H 32-36 G/DL Red Cell Distribution Width 11.4 10.0-14.5 % Platelet Count 246 130-400 10^3/uL Mean Platelet Volume 8.8 7.4-10.4 FL My Orders Orders - KAREEM VARGAS APRN Clonidine Tablet (Catapres Tablet) (03/01/18 20:45) Cbc No Diff (03/01/18 20:38) Phenylephrine 0.5% Nasal [place] (Yg-Syne (03/01/18 21:00) Phenylephrine 0.25% Nasal [place] (Yg-Syne (03/01/18 20:49) Tropicamide 1% Ophth Soln (Mydriacyl 1% (03/01/18 21:21) Tranexamic Acid Injection (Cyklokapron I (03/01/18 21:22) Medications Given in ED Current Medications Medications Dose Ordered Sig/Ambar Route Start Time Stop Time Status Last Admin Dose Admin Clonidine HCl 0.2 mg ONCE ONCE PO 03/01/18 20:45 03/01/18 20:46 DC 03/01/18 20:45 0.2 MG Phenylephrine HCl 15 ml STK-MED ONCE NS 03/01/18 20:49 03/01/18 20:54 DC 03/01/18 20:57 15 ML Tranexamic Acid 1,000 mg STK-MED ONCE IV 03/01/18 21:22 03/01/18 21:28 DC 03/01/18 21:27 1,000 MG Vital Signs/I&O 03/01/18 20:31 Temp 96.9 Pulse 80 Resp 16 B/P (MAP) 201/114 (143) Pulse Ox 99 O2 Delivery Room Air Departure Communication (Admissions) 2034- Upon arrival direct pressure was held to the nose for about 5 minutes. This did seem to stop his bleeding. At this time there is no blood in the oropharynx or coming from the nose. We will address his hypertension of 201/114 with clonidine, check a CBC and observe. If the bleeding restarts will reevaluate. 2242- during his ER stay he had a couple of transient episodes of epistaxis consisting of mild oozing of blood from the left nostril. I am unable to pinpoint an exact source of bleeding. A 5.5 cm rapid Rhino was soaked in saline/ tranexemic acid and instilled in the left nostril for about 30 minutes. Upon removal of this there was no residual bleeding in the oropharynx or from the left nostril. His blood pressure on arrival was 201/114. After 0.2 mg of clonidine he is now at 154/96. I did offer to place a rapid Rhino, discharged home and return to ER tomorrow to have this removed as one option or he could go on home without the rapid Rhino and return if he has any recurrence of bleeding. He would prefer to go on home to return if he has a recurrence of bleeding. Impression Primary Impression: Epistaxis Additional Impression: Hypertension Disposition: 01 HOME, SELF-CARE Condition: Stable Departure-Patient Inst. Decision time for Depature: 22:45 Referrals: DAPHNIE LARA MD (PCP/Family) Primary Care Physician Patient Instructions: Nosebleeds (DC) Add. Discharge Instructions: 1. Call Dr. Lara tomorrow morning at 8 AM to make an appointment to be seen preferably tomorrow. Return to ER for any recurrent bleeding that she were unable to stop at home, no blowing your nose and to your best not to sneeze or pick your nose for about 2 weeks. Copy Copies To 1: DAPHNIE LARA MD, PETER J APRN Mar 01, 2018 20:41
[2018-03-01] MEDS ORDERED: cloNIDine 0.1 MG (CATAPRES) TAB PO ONE (20:45)
[2018-03-01] MEDS ORDERED: PHENYLEPHRINE 0.25% NASAL SPR (NEO-SYNEPHRINE) 15 ML NS ONE (20:49)
[2018-03-01] MEDS: PHENYLEPHRINE 0.5% NASAL SPR (NEO-SYNEPHRINE) REG ONE ×2 (20:54→20:57)
[2018-03-01 20:57] LABS: HEMOGLOBIN 14.1 G/DL (13.3-17.7); MEAN PLATELET VOLUME 8.8 FL (7.4-10.4); RED BLOOD COUNT 4.07 10^6/uL (4.35-5.85); RED CELL DISTRIBUTION WIDTH 11.4 % (10.0-14.5); WHITE BLOOD COUNT 9.5 10^3/uL (4.3-11.0)
[2018-03-01] MEDS ORDERED: TROPICAMIDE 1% OPH SOLN (MYDRIACYL) 15 ML BTL ONE (21:21)
[2018-03-01] MEDS ORDERED: TRANEXAMIC ACID 100 MG/ML 10 ML INJECTION IV ONE (21:22)
[2018-03-01 23:20] VITALS: BP 134/85
== END 2018-03-01 23:20 | disposition home or self-care (01) ==
LOC: EDUNIT# 20:26 → ER 20:27
DX: R04.0 Epistaxis (principal); I10 Essential (primary) hypertension; I48.91 Unspecified atrial fibrillation
CPT/HCPCS: 30901; 36415; 85027; 96360

== ENCOUNTER → 2018-07-06 | Outpatient (CLI) | payer MEDICARE ==
--- NOTE | 2018-07-06 11:38 | Diagnostic Imaging Report ---
CLINICAL INDICATION: Patient with cough and wheezing for the past week. EXAM: Chest x-ray PA and lateral views. COMPARISONS: Chest x-ray dated 07/06/2014.. FINDINGS: Nipple shadows are seen overlying both lower lung cardoso. Lungs/pleura: Lungs are clear. There is no pneumothorax. There is no pleural effusion. Mediastinum: Unremarkable. Pulmonary vasculature: Unremarkable. Heart: Stable mild cardiomegaly. Bones/extrathoracic soft tissue: There are mildly hypertrophic degenerative osteophytes scattered throughout the thoracic spine. IMPRESSION: 1: Stable chest x-ray exam with no interval radiographic evidence of acute cardiopulmonary process. 2: Stable mild cardiomegaly with no significant pulmonary vascular congestion. Dictated by: Dictated on workstation # [id number]
== END ==
LOC: RAD 10:55
PROVIDERS: ATTEND Family Medicine
DX: I51.7 Cardiomegaly (principal); R05 Cough; R06.2 Wheezing
CPT/HCPCS: 71046

== ENCOUNTER 2019-05-13 14:03 | Emergency (ER) | payer MEDICARE ==
[~2019-05-13] VITALS: Ht 170 cm; Wt 105.0 kg
[2019-05-13 14:11] VITALS: BP 145/97
--- NOTE | 2019-05-13 14:23 | ED Chest Pain ---
General Chief Complaint: Chest Pain Stated Complaint: BP 199/68, CP Nursing Triage Note: Pt ambulates to [facility] 3 with c/o right sided chest pain x 3 days that is worse when he inhales and radiates to right ear. Pt also reports SOB, O2 98% on RA. PT has Hx of HTN. Pt is A&O x 4 at this time. Nursing Sepsis Screen: No Definite Risk Source: patient, other (girlfriend) Exam Limitations: no limitations History of Present Illness Date Seen by Provider: May 13, 2019 Time Seen by Provider: 14:07 Initial Comments Patient presents ER by private conveyance with his girlfriend chief complaint of intermittent chest pain since , 4 days ago but today is progressively gotten worse. He woke up with at around 7 the morning and it has not gone away. It is in his upper left chest radiating towards his shoulder and jaw. He is not having any numbness tingling sweats but he is having some nausea. He has not taken anything for it and acids Tylenol aspirin. He is on Eliquis and has a history of atrial fibrillation. He is followed by Dr. Fleming. He denies a hist ory of coronary disease but he has high blood pressure. He denies diabetes but he smokes cigarettes. He is also had occasional cough but no more than usual. He denies a history of COPD or asthma. He drinks about a sixpack and a pack of cigarettes every day. He has a history of bipolar and schizoaffective disorder. He receives Risperdal shots every 6 months. Allergies and Home Medications Allergies Coded Allergies: No Known Drug Allergies (Verified , 02/10/16) Home Medications Diltiazem HCl 180 Mg Tab.er.24h, 180 MG PO DAILY, (Reported) Fenofibrate,Micronized 145 Mg Tablet, 145 MG PO HS, (Reported) Meloxicam 15 Mg Tablet, 15 MG PO DAILY, (Reported) Metoprolol Succinate 50 Mg Tab.er.24h, 50 MG PO DAILY, (Reported) Paroxetine HCl 40 Mg Tablet, 40 MG PO DAILY PRN, (Reported) Patient Home Medication List Home Medication List Reviewed: Yes Review of Systems Review of Systems Constitutional: No chills, No fever EENTM: No Blurred Vision, No Double Vision Respiratory: Cough; Denies Shortness of Air Cardiovascular: See HPI, Chest Pain Gastrointestinal: No Symptoms Reported Genitourinary: Denies Burning, Denies Discharge All Other Systems Reviewed Negative Unless Noted: Yes Past Bnbmlnb-Juxoqv-Mrlcwk Hx Patient Social History Alcohol Use: Regular Use Alcohol Beverage of Choice: Beer Recreational Drug Use: No Smoking Status: Current Everyday Smoker Type Used: Cigarettes 2nd Hand Smoke Exposure: Yes Recent Foreign Travel: No Contact w/Someone Who Travel: No Recent Infectious Disease Expo: No Recent Hopitalizations: No Seasonal Allergies Seasonal Allergies: No Past Medical History Surgeries: No Respiratory: No Cardiac: Yes Hypertension Neurological: No Genitourinary: No Gastrointestinal: No Musculoskeletal: Yes (ARTHRITIS IN BACK) Endocrine: No Cancer: No Psychosocial: No Integumentary: No Blood Disorders: No Physical Exam Vital Signs Vital Signs - First Documented 05/13/19 05/13/19 14:11 14:20 Temp 36.5 Pulse 99 Resp 22 B/P (MAP) 145/97 (113) Pulse Ox 98 O2 Delivery Room Air O2 Flow Rate 1.0 Capillary Refill : Less Than 3 Seconds Height, Weight, BMI Height: 5'6.00" Weight: 207lbs. 0.0oz. [id number]; 36.00 BMI Method:Stated General Appearance: No Apparent Distress, WD/WN HEENT: PERRL/EOMI, Pharynx Normal, Moist Mucous Membranes Neck: Full Range of Motion, Normal Inspection Respiratory: Chest Non Tender, Lungs Clear, Normal Breath Sounds, No Accessory Muscle Use, No Respiratory Distress Cardiovascular: Regular Rate, Rhythm, No Edema, Normal Peripheral Pulses Gastrointestinal: Normal Bowel Sounds, No Organomegaly, Non Tender, Soft Extremity: Normal Capillary Refill, Normal Inspection, No Pedal Edema Neurologic/Psychiatric: Alert, Oriented x3 Skin: Normal Color, Warm/Dry Progress/Results/Core Measures Results/Orders Lab Results Laboratory Tests Test 05/13/19 14:24 05/13/19 17:38 Range/Units White Blood Count 19.6 H 4.3-11.0 10^3/uL Red Blood Count 3.98 L 4.35-5.85 10^6/uL Hemoglobin 12.9 L 13.3-17.7 G/DL Hematocrit 38 L 40-54 % Mean Corpuscular Volume 95 80-99 FL Mean Corpuscular Hemoglobin 32 25-34 PG Mean Corpuscular Hemoglobin Concent 34 32-36 G/DL Red Cell Distribution Width 12.0 10.0-14.5 % Platelet Count 282 130-400 10^3/uL Mean Platelet Volume 7.6 7.4-10.4 FL Neutrophils (%) (Auto) 77 H 42-75 % Lymphocytes (%) (Auto) 12 12-44 % Monocytes (%) (Auto) 10 0-12 % Eosinophils (%) (Auto) 1 0-10 % Basophils (%) (Auto) 0 0-10 % Neutrophils # (Auto) 15.2 H 1.8-7.8 X 10^3 Lymphocytes # (Auto) 2.4 1.0-4.0 X 10^3 Monocytes # (Auto) 1.9 H 0.0-1.0 X 10^3 Eosinophils # (Auto) 0.1 0.0-0.3 10^3/uL Basophils # (Auto) 0.0 0.0-0.1 10^3/uL Neutrophils % (Manual) 74 % Lymphocytes % (Manual) 10 % Monocytes % (Manual) 12 % Eosinophils % (Manual) 3 % Band Neutrophils 1 % Toxic Granulation 1+ Blood Morphology Comment NORMAL Prothrombin Time 13.3 12.2-14.7 SEC INR Comment 1.0 0.8-1.4 Activated Partial Thromboplast Time 34 24-35 SEC Sodium Level 129 L 135-145 MMOL/L Potassium Level 4.1 3.6-5.0 MMOL/L Chloride Level 94 L 98-107 MMOL/L Carbon Dioxide Level 22 21-32 MMOL/L Anion Gap 13 5-14 MMOL/L Blood Urea Nitrogen 10 7-18 MG/DL Creatinine 1.30 0.60-1.30 MG/DL Estimat Glomerular Filtration Rate > 60 BUN/Creatinine Ratio 8 Glucose Level 114 H 70-105 MG/DL Calcium Level 9.0 8.5-10.1 MG/DL Corrected Calcium 8.8 8.5-10.1 MG/DL Magnesium Level 1.7 1.6-2.4 MG/DL Total Bilirubin 0.7 0.1-1.0 MG/DL Aspartate Amino Transf (AST/SGOT) 21 5-34 U/L Alanine Aminotransferase (ALT/SGPT) 24 0-55 U/L Alkaline Phosphatase 51 40-136 U/L Myoglobin 34.3 10.0-92.0 NG/ML Troponin I < 0.028 < 0.028 <0.028 NG/ML B-Type Natriuretic Peptide 47.0 <100.0 PG/ML Total Protein 7.6 6.4-8.2 GM/DL Albumin 4.3 3.2-4.5 GM/DL Micro Results Microbiology 05/13/19 Influenza Types A,B Antigen (ANTONI) - Final, Complete My Orders Orders - NARENYAMILETH Cbc With Automated Diff (05/13/19 14:20) Magnesium (05/13/19 14:20) Chest 1 View, Ap/Pa Only (05/13/19 14:20) Ekg Tracing (05/13/19 14:20) Comprehensive Metabolic Panel (05/13/19 14:20) Myoglobin Serum (05/13/19 14:20) Protime With Inr (05/13/19 14:20) Partial Thromboplastin Time (05/13/19 14:20) O2 (05/13/19 14:20) Monitor-Rhythm Ecg Trace Only (05/13/19 14:20) Lipid Panel (05/14/19 06:00) Ed Iv/Invasive Line Start (05/13/19 14:20) BNP (05/13/19 14:20) Troponin I (05/13/19 14:20) Nitroglycerin 0.4 Mg Btl 25's (Nitrostat (05/13/19 14:30) Aspirin Chewable Tablet (Baby Aspirin Ch (05/13/19 14:30) Manual Differential (05/13/19 14:24) Influenza A And B Antigens (05/13/19 15:49) Troponin I (05/13/19 17:30) Medications Given in ED Current Medications Medications Dose Ordered Sig/Ambar Route Start Time Stop Time Status Last Admin Dose Admin Aspirin 324 mg ONCE ONCE PO 05/13/19 14:30 05/13/19 14:31 DC 05/13/19 14:28 324 MG Nitroglycerin 0.4 mg UD PRN SL 05/13/19 14:30 05/13/19 14:29 0.4 MG Vital Signs/I&O 05/13/19 05/13/19 05/13/19 14:11 14:20 14:25 Temp 36.5 Pulse 99 Resp 22 B/P (MAP) 145/97 (113) Pulse Ox 98 97 O2 Delivery Room Air Nasal Cannula Room Air O2 Flow Rate 1.0 Blood Pressure Mean: 113 Progress Progress Note #1: Time: 15:55 Progress Note He has no elevated white count of 20,000 but no fever or productive cough. We'll get an influenza swab and repeat a troponin and if it still negative we can have him follow-up with Dr. Fleming outpatient. He had plans to see his primary care doctor tomorrow. He says he is not having any pain right now. Heart scores is 4 points. He has some risk factors for heart disease but normal EKG and initial troponin. He does not really want to stay. Called left a voicemail with Dr. Taylor's in the middle of a heart catheter. Repeat trop at 1730. He says he only gets chest pain when he takes a deep breath in. If we can rule him out in the ER we could give him a dose of Toradol. Progress Note #2: Time: 18:15 Progress Note Patient says he still having just a mild discomfort in his right and left upper chest worse when he takes a deep breath in. We have discussed with him the plan from the resident manager and he has declined. He says he does not want to stay. We have explained to him there could be worsening health outcomes by not staying in the hospital overnight and we cannot rule out that he has a bad heart vessel based on previous examinations. He has accepted this risk. As a second plan we have asked that he follow-up with his primary care doctor as early as possible this week and he is agreed to do that. We have given him return precautions and he has agreed to come back if his symptoms return. Initial ECG Impression Date: May 13, 2019 Initial ECG Impression Time: 14:11 Initial ECG Rate: 98 Initial ECG Rhythm: Normal Sinus Initial ECG Intervals: Normal Initial ECG Impression: Normal, Nonspecific Changes Comment No clinically relevant past elevation or depression. Normal sinus rhythm. Diagnostic Imaging Diagonstic Imaging: Xray Plain Films/CT/US/NM/MRI: chest Comments [facility] [place], [place] NAME: [facility] REC#: [id number] PT STATUS: REG ER : 1955 PHYSICIAN: YAMILETH SNEED MD ADMIT DATE: 05/13/19/ER Signed Date of Exam:05/13/19 CHEST 1 VIEW, AP/PA ONLY INDICATION: Right-sided chest pain. TIME OF EXAM: 2:51 PM COMPARISON: Correlation is made with prior chest from 07/06/2018. FINDINGS: Heart is enlarged. Lungs are clear apart from a parenchymal density in the right base, similar to prior exam. No effusion or pneumothorax. IMPRESSION: Right basilar nodular density, perhaps associated with right anterior rib end. These were prominent on the prior exams. Close follow-up is recommended to confirm stability. Dictated by: Dictated on workstation # [id number] Dict: 05/13/19 1456 Trans: 05/13/19 1540 [id number] Interpreted by: TONYA BERRY MD Electronically signed by: TONYA BERRY MD 05/13/19 1540 Reviewed: Reviewed by Me Consults : Consulting Physician: Coby TAYLOR MD Consults Notes 1723: Discussed case lab imaging EKG and he would really like to 3 hour repeat troponin discussed the results with him. At this time patient was chest pain free after single dose of nitroglycerin. 1815: Discussed the case with Dr. Taylor and because of the risk factors and patient's resident manager being out of town he would much prefer the patient to be observed overnight and examined in the morning by cardiology. Departure Impression Primary Impression: Chest pain Qualified Codes: R07.9 - Chest pain, unspecified Disposition: 07 AGAINST MEDICAL ADVICE Condition: Against Medical Advice Departure-Patient Inst. Decision time for Depature: 18:16 Referrals: DAPHNIE RUSSO MD (PCP/Family) Primary Care Physician Patient Instructions: Chest Pain (DC) Add. Discharge Instructions: If you have severe chest plan please return to the ER as promptly as possible. Tomorrow call Dr. Chang and request close follow-up. All discharge instructions reviewed with patient and/or family. Voiced und erstanding. Copy Copies To 1: DAPHNIE RUSSO MD, TITUS J May 13, 2019 14:23
[2019-05-13] MEDS ORDERED: NITROGLYCERIN 0.4 MG SL TABS BTL 25'S SL PRN (14:30)
[2019-05-13] MEDS ORDERED: ASPIRIN 81 MG CHEW (CHILDREN'S ASA) PO ONE (14:30)
[2019-05-13 14:32] LABS: BASOPHILS % (AUTO) 0 % (0-10); EOSINOPHILS # (AUTO) 0.1 10^3/uL (0.0-0.3); EOSINOPHILS % (AUTO) 1 % (0-10); HEMATOCRIT 38 % (40-54); HEMOGLOBIN 12.9 G/DL (13.3-17.7); LYMPHOCYTES # (AUTO) 2.4 X 10^3 (1.0-4.0); LYMPHOCYTES % (AUTO) 12 % (12-44); MEAN CORPUSCULAR HEMOGLOBIN 32 PG (25-34); MEAN CORPUSCULAR HGB CONC 34 G/DL (32-36); MEAN CORPUSCULAR VOLUME 95 FL (80-99); MEAN PLATELET VOLUME 7.6 FL (7.4-10.4); MONOCYTES # (AUTO) 1.9 X 10^3 (0.0-1.0); MONOCYTES % (AUTO) 10 % (0-12); NEUTROPHILS # (AUTO) 15.2 X 10^3 (1.8-7.8); NEUTROPHILS % (AUTO) 77 % (42-75); PLATELET COUNT 282 10^3/uL (130-400); WHITE BLOOD COUNT 19.6 10^3/uL (4.3-11.0)
[2019-05-13 14:43] LABS: PROTHROMBIN TIME PATIENT 13.3 SEC (12.2-14.7)
[2019-05-13 14:54] LABS: BAND NEUTROPHILS 1 %; EOSINOPHILS % (MANUAL) 3 %; LYMPHOCYTES % (MANUAL) 10 %; MONOCYTES % (MANUAL) 12 %; NEUTROPHILS % (MANUAL) 74 %
[2019-05-13 14:55] LABS: RBC MORPH NORMAL; TOXIC GRANULATION/VACUOLAZATIO 1+
[2019-05-13 15:01] LABS: ALANINE AMINOTRANSFERASE 24 U/L (0-55); ALBUMIN 4.3 GM/DL (3.2-4.5); ALKALINE PHOSPHATASE 51 U/L (40-136); BILIRUBIN,TOTAL 0.7 MG/DL (0.1-1.0); BUN/CREATININE RATIO 8; CARBON DIOXIDE 22 MMOL/L (21-32); CHLORIDE 94 MMOL/L (98-107); GFR ESTIMATED > 60; GLUCOSE 114 MG/DL (70-105); MAGNESIUM 1.7 MG/DL (1.6-2.4); POTASSIUM 4.1 MMOL/L (3.6-5.0); SODIUM 129 MMOL/L (135-145); TOTAL PROTEIN 7.6 GM/DL (6.4-8.2)
--- NOTE | 2019-05-13 15:06 | Diagnostic Imaging Report ---
INDICATION: Right-sided chest pain. TIME OF EXAM: 2:51 PM COMPARISON: Correlation is made with prior chest from 07/06/2018. FINDINGS: Heart is enlarged. Lungs are clear apart from a parenchymal density in the right base, similar to prior exam. No effusion or pneumothorax. IMPRESSION: Right basilar nodular density, perhaps associated with right anterior rib end. These were prominent on the prior exams. Close follow-up is recommended to confirm stability. Dictated by: Dictated on workstation # [id number]
== END 2019-05-13 18:27 | disposition left against medical advice (07) ==
LOC: EDUNIT# 14:03 → ER 14:05
DX: R07.9 Chest pain, unspecified (principal); I10 Essential (primary) hypertension; I48.91 Unspecified atrial fibrillation; F20.9 Schizophrenia, unspecified; F31.9 Bipolar disorder, unspecified; F17.210 Nicotine dependence, cigarettes, uncomplicated; Z79.01 Long term (current) use of anticoagulants; W22.8XXA Striking against or struck by other objects, initial encounter
CPT/HCPCS: 36415; 71045; 80053; 83735; 83874; 83880; 84484; 85007; 85027; 85610; 85730; 87804; 93005; 93041

== ENCOUNTER → 2019-05-18 | Outpatient (CLI) | payer MEDICARE ==
--- NOTE | 2019-05-18 08:49 | Diagnostic Imaging Report ---
INDICATION: Alcohol abuse and weight gain. FINDINGS: Liver is upper limits of normal in size at 18 cm. No discrete liver mass is identified. Portal vein is patent and shows normal direction of flow. Gallbladder is without stones or sludge. No wall thickening or biliary ductal dilatation is identified. The visualized pancreas is unremarkable. Spleen is normal in size at 10.8 cm. Proximal aorta is non-aneurysmal. The mid and distal aorta were obscured by bowel gas. IVC is unremarkable. Right and left kidneys are without evidence of calculi or hydronephrosis. There is no ascites. IMPRESSION: Essentially unremarkable abdominal ultrasound. Dictated by: Dictated on workstation # [id number]
== END ==
LOC: RAD 06:32
PROVIDERS: ATTEND Family Medicine
DX: F10.10 Alcohol abuse, uncomplicated (principal); R63.5 Abnormal weight gain
CPT/HCPCS: 76700

== ENCOUNTER 2019-06-15 17:40 | Emergency (ER) | payer MEDICARE ==
[~2019-06-15] VITALS: Ht 167.7 cm; Wt 109.1 kg
[2019-06-15 17:55] LABS: BASOPHILS % (AUTO) 0 % (0-10); EOSINOPHILS # (AUTO) 0.3 10^3/uL (0.0-0.3); EOSINOPHILS % (AUTO) 3 % (0-10); HEMATOCRIT 41 % (40-54); LYMPHOCYTES # (AUTO) 2.2 X 10^3 (1.0-4.0); LYMPHOCYTES % (AUTO) 20 % (12-44); MEAN CORPUSCULAR HEMOGLOBIN 32 PG (25-34); MEAN CORPUSCULAR HGB CONC 35 G/DL (32-36); MEAN CORPUSCULAR VOLUME 93 FL (80-99); MEAN PLATELET VOLUME 8.1 FL (7.4-10.4); MONOCYTES # (AUTO) 1.2 X 10^3 (0.0-1.0); MONOCYTES % (AUTO) 11 % (0-12); NEUTROPHILS # (AUTO) 7.1 X 10^3 (1.8-7.8); NEUTROPHILS % (AUTO) 66 % (42-75); PLATELET COUNT 302 10^3/uL (130-400); RED CELL DISTRIBUTION WIDTH 11.9 % (10.0-14.5); WHITE BLOOD COUNT 10.9 10^3/uL (4.3-11.0)
--- NOTE | 2019-06-15 17:57 | ED General ---
General Stated Complaint: SLURRED SPEECH Source of Information: Patient Exam Limitations: No Limitations History of Present Illness Date Seen by Provider: Jun 15, 2019 Time Seen by Provider: 17:53 Initial Comments To ER by EMS with reports of slurred speech. He was pulled over by police for driving up and down a block repeatedly. When they pulled him over the noticed his speech to be difficult to understand. He has a history of schizophrenia he reports and has a caregiver for this reason. Police called his caregiver who reports that he is not supposed to be driving but she allowed him to go drive to get a pizza. He was seen here in the emergency room one month ago for high blood pressure and chest pain and left AGAINST MEDICAL ADVICE. His caregiver suspects that he had a stroke then because his speech has been difficult to understand since then. He also has a history of cirrhosis and alcohol use. EMS states that he did not have any arm drift or other localizing neurologic deficits. He is on Eliquis for a history of atrial fibrillation. Timing/Duration: 1-2 Days Severity: Moderate Associated Systoms: Other (as above) Allergies and Home Medications Allergies Coded Allergies: No Known Drug Allergies (Verified , 02/10/16) Home Medications Diltiazem HCl 180 Mg Tab.er.24h, 180 MG PO DAILY, (Reported) Fenofibrate,Micronized 145 Mg Tablet, 145 MG PO HS, (Reported) Meloxicam 15 Mg Tablet, 15 MG PO DAILY, (Reported) Metoprolol Succinate 50 Mg Tab.er.24h, 50 MG PO DAILY, (Reported) Paroxetine HCl 40 Mg Tablet, 40 MG PO DAILY PRN, (Reported) Patient Home Medication List Home Medication List Reviewed: Yes Review of Systems Review of Systems Constitutional: see HPI EENTM: see HPI Respiratory: no symptoms reported Cardiovascular: no symptoms reported Genitourinary: no symptoms reported Musculoskeletal: no symptoms reported Skin: no symptoms reported Psychiatric/Neurological: No Symptoms Reported, See HPI Hematologic/Lymphatic: No Symptoms Reported Immunological/Allergic: no symptoms reported Past Zflgmeg-Mresfm-Qcvmat Hx Patient Social History Alcohol Beverage of Choice: Beer Type Used: Cigarettes 2nd Hand Smoke Exposure: Yes Recent Foreign Travel: No Contact w/Someone Who Travel: No Recent Hopitalizations: No Seasonal Allergies Seasonal Allergies: No Past Medical History Surgeries: No Respiratory: No Cardiac: Yes High Cholesterol, Hypertension Neurological: No Genitourinary: No Gastrointestinal: No Musculoskeletal: Yes (ARTHRITIS IN BACK) Endocrine: No Cancer: No Psychosocial: No Integumentary: No Blood Disorders: No Physical Exam Vital Signs Vital Signs - First Documented 06/15/19 17:40 Temp 36.7 Pulse 91 Resp 18 B/P (MAP) 182/124 (143) Pulse Ox 96 O2 Delivery Room Air Capillary Refill : Height, Weight, BMI Height: 5'6.00" Weight: 207lbs. 0.0oz. 93.691646em; 36.00 BMI Method:Stated General Appearance: No Apparent Distress, WD/WN, Chronically ill, Other (alert, speech is difficult to understand but he answers questions appropriately.) Eyes: Bilateral Eye Normal Inspection, Bilateral Eye PERRL, Bilateral Eye EOMI HEENT: PERRL/EOMI, TMs Normal Respiratory: No Accessory Muscle Use, No Respiratory Distress Gastrointestinal: Non Tender, Soft Extremity: Normal Capillary Refill, Normal Inspection Neurologic/Psychiatric: Alert, Oriented x3 Skin: Normal Color, Warm/Dry Progress/Results/Core Measures Suspected Sepsis SIRS Temperature: Pulse: Respiratory Rate: Laboratory Tests 06/15/19 17:45: White Blood Count 10.9 Blood Pressure / Mean: Laboratory Tests 06/15/19 17:45: Creatinine 1.05, Platelet Count 302, Total Bilirubin 0.5 Results/Orders Lab Results Laboratory Tests Test 06/15/19 17:45 06/15/19 19:34 Range/Units White Blood Count 10.9 4.3-11.0 10^3/uL Red Blood Count 4.36 4.35-5.85 10^6/uL Hemoglobin 14.0 13.3-17.7 G/DL Hematocrit 41 40-54 % Mean Corpuscular Volume 93 80-99 FL Mean Corpuscular Hemoglobin 32 25-34 PG Mean Corpuscular Hemoglobin Concent 35 32-36 G/DL Red Cell Distribution Width 11.9 10.0-14.5 % Platelet Count 302 130-400 10^3/uL Mean Platelet Volume 8.1 7.4-10.4 FL Neutrophils (%) (Auto) 66 42-75 % Lymphocytes (%) (Auto) 20 12-44 % Monocytes (%) (Auto) 11 0-12 % Eosinophils (%) (Auto) 3 0-10 % Basophils (%) (Auto) 0 0-10 % Neutrophils # (Auto) 7.1 1.8-7.8 X 10^3 Lymphocytes # (Auto) 2.2 1.0-4.0 X 10^3 Monocytes # (Auto) 1.2 H 0.0-1.0 X 10^3 Eosinophils # (Auto) 0.3 0.0-0.3 10^3/uL Basophils # (Auto) 0.0 0.0-0.1 10^3/uL Sodium Level 127 L 135-145 MMOL/L Potassium Level 4.5 3.6-5.0 MMOL/L Chloride Level 92 L 98-107 MMOL/L Carbon Dioxide Level 24 21-32 MMOL/L Anion Gap 11 5-14 MMOL/L Blood Urea Nitrogen 8 7-18 MG/DL Creatinine 1.05 0.60-1.30 MG/DL Estimat Glomerular Filtration Rate > 60 BUN/Creatinine Ratio 8 Glucose Level 107 H 70-105 MG/DL Calcium Level 9.4 8.5-10.1 MG/DL Corrected Calcium 9.2 8.5-10.1 MG/DL Total Bilirubin 0.5 0.1-1.0 MG/DL Aspartate Amino Transf (AST/SGOT) 20 5-34 U/L Alanine Aminotransferase (ALT/SGPT) 19 0-55 U/L Alkaline Phosphatase 50 40-136 U/L Ammonia 11 11-32 UMOL/L Total Protein 7.7 6.4-8.2 GM/DL Albumin 4.2 3.2-4.5 GM/DL Serum Alcohol < 10 <10 MG/DL Urine Color YELLOW Urine Clarity CLEAR Urine pH 7.0 5-9 Urine Specific Atkinson 1.010 L 1.016-1.022 Urine Protein NEGATIVE NEGATIVE Urine Glucose (UA) NEGATIVE NEGATIVE Urine Ketones NEGATIVE NEGATIVE Urine Nitrite NEGATIVE NEGATIVE Urine Bilirubin NEGATIVE NEGATIVE Urine Urobilinogen 1.0 < = 1.0 MG/DL Urine Leukocyte Esterase NEGATIVE NEGATIVE Urine RBC (Auto) NEGATIVE NEGATIVE Urine RBC NONE /HPF Urine WBC NONE /HPF Urine Squamous Epithelial Cells NONE /HPF Urine Crystals NONE /LPF Urine Bacteria TRACE /HPF Urine Casts NONE /LPF Urine Mucus NEGATIVE /LPF Urine Culture Indicated NO My Orders Orders - KAREEM VARGAS APRN Alcohol (06/15/19 17:44) Ammonia (06/15/19 17:44) Ua Culture If Indicated (06/15/19 17:44) Drug Screen Stat (Urine) (06/15/19 17:44) Ct Head Wo (06/15/19 17:44) Chest 1 View, Ap/Pa Only (06/15/19 17:44) Ekg Tracing (06/15/19 17:44) Cbc With Automated Diff (06/15/19 17:44) Comprehensive Metabolic Panel (06/15/19 17:44) Ed Iv/Invasive Line Start (06/15/19 17:44) Ceftriaxone For Iv Use (Rocephin For I (06/15/19 19:00) Clonidine Tablet (Catapres Tablet) (06/15/19 19:00) Medications Given in ED Current Medications Medications Dose Ordered Sig/Ambar Route Start Time Stop Time Status Last Admin Dose Admin Ceftriaxone Sodium 1000 mg/ Sterile Water 10 ml @ 200 mls/hr ONCE ONCE IV 06/15/19 19:00 06/15/19 19:02 DC 06/15/19 19:07 200 MLS/HR Clonidine HCl 0.1 mg ONCE ONCE PO 06/15/19 19:00 06/15/19 19:01 DC 06/15/19 19:07 0.1 MG Vital Signs/I&O 06/15/19 17:40 Temp 36.7 Pulse 91 Resp 18 B/P (MAP) 182/124 (143) Pulse Ox 96 O2 Delivery Room Air Capillary Refill : Diagnostic Imaging Diagonstic Imaging: CT Comments NAME: HENRY WOOD [facility] REC#: [id number] PT STATUS: REG ER : 1955 PHYSICIAN: KAREEM VARGAS APRN ADMIT DATE: 06/15/19/ER Draft Date of Exam:06/15/19 CT HEAD WO PROCEDURE: CT head without contrast. TECHNIQUE: Multiple contiguous axial images were obtained through the brain without the use of intravenous contrast. Auto Exposure Controls were utilized during the CT exam to meet ALARA standards for radiation dose reduction. INDICATION: Abnormal speech and confusion. COMPARISON: None. FINDINGS: Ventricles are normal in size, shape and position. There is no midline shift or mass effect. There is no hemorrhage or evidence of acute ischemia. There is no cerebral edema. No mass is identified. No extra-axial fluid collection. There is some slight chronic microvascular changes in the periventricular white matter. The bony calvarium, paranasal sinuses and mastoids are unremarkable. IMPRESSION: Negative CT head. Dictated on workstation # [id number] Dict: 06/15/19 1840 Trans: 06/15/191842 [id number] Interpreted by: RAYSHAWN RICHEY Electronically signed by: NAME: HENRY WOOD [facility] REC#: [id number] PT STATUS: REG ER : 1955 PHYSICIAN: KAREEM VARGAS BUILDING PERFORMANCE CONSULTANT ADMIT DATE: 06/15/19/ER Draft Date of Exam:06/15/19 CHEST 1 VIEW, AP/PA ONLY INDICATION: Garbled speech, confusion. COMPARISON: 05/13/2019. FINDINGS: Single view of the chest demonstrates a new consolidation in the medial right lung base. Atelectasis is seen in left base. The heart is prominent without pulmonary edema. There is no pneumothorax or effusion. Osseous structures normal. IMPRESSION: 1. New area of consolidation medial right lung base. 2. Atelectasis left base. Follow-up recommended. Dictated on workstation # [id number] Dict: 06/15/19 183 Trans: 06/15/191841 [id number] Interpreted by: RAYSHAWN RICHEY Electronically signed by: Departure Impression Primary Impression: Pneumonia Qualified Codes: J18.9 - Pneumonia, unspecified organism Additional Impressions: Dysarthria Hypertension Qualified Codes: I10 - Essential (primary) hypertension Disposition: HOME, SELF-CARE Condition: Stable Departure-Patient Inst. Decision time for Depature: 20:06 Referrals: DAPHNIE RUSSO MD (PCP/Family) Primary Care Physician Patient Instructions: Pneumonia, Adult (DC) Add. Discharge Instructions: 1. Return to ER for any concerns 2. Antibiotics as directed 3. Follow-up with your doctor next week. Scripts Amoxicillin/Potassium Clav (Augmentin 875-125 Tablet) 1 Each Tablet 1 EACH PO BID, #14 TAB 0 Refills Prov: KAREEM VARGAS APRN 06/15/19 Azithromycin (Azithromycin) 250 Mg Tablet 250 MG PO UD, #6 TAB TAKE 2 TABLETS ON DAY ONE THEN TAKE 1 TABLET DAILY FOR FOUR MORE DAYS Prov: KAREEM VARGAS APRN 06/15/19 NIH Stroke Scale NIH Stroke Scale NIH : Select: Initial Level of Consciousness: 0=Alert Level of Consciousness-Questio: 0=Answers both month/age LOC Commands: 0=Performs both tasks Gaze: 0=Normal Facial Movement (Facial Paresi: 0=Normal symmetrical mnt Motor Function-Arms Right: 0=No drift Motor Function-Arms Left: 0=No drift Motor Function-Legs Right: 0=No drift Motor Function-Legs Left: 0=No drift Limb Ataxia: 0=Absent Sensory: 0=Normal:no loss Best Language: 0=No aphasia Dysarthria: 1=Mild to moderate loss Extinction & Inattention: 0=No abnormality NIH Stroke Scale Score: 1 KAREEM VARGAS APRN Jun 15, 2019 17:57
[2019-06-15 18:14] LABS: ALANINE AMINOTRANSFERASE 19 U/L (0-55); ALBUMIN 4.2 GM/DL (3.2-4.5); ALKALINE PHOSPHATASE 50 U/L (40-136); AMMONIA 11 UMOL/L (11-32); BILIRUBIN,TOTAL 0.5 MG/DL (0.1-1.0); BUN/CREATININE RATIO 8; CALCIUM 9.4 MG/DL (8.5-10.1); CARBON DIOXIDE 24 MMOL/L (21-32); CHLORIDE 92 MMOL/L (98-107); CREATININE SERUM 1.05 MG/DL (0.60-1.30); GFR ESTIMATED > 60; GLUCOSE 107 MG/DL (70-105); POTASSIUM 4.5 MMOL/L (3.6-5.0); SODIUM 127 MMOL/L (135-145); TOTAL PROTEIN 7.7 GM/DL (6.4-8.2)
--- NOTE | 2019-06-15 18:42 | Diagnostic Imaging Report ---
INDICATION: Garbled speech, confusion. COMPARISON: 05/13/2019. FINDINGS: Single view of the chest demonstrates a new consolidation in the medial right lung base. Atelectasis is seen in left base. The heart is prominent without pulmonary edema. There is no pneumothorax or effusion. Osseous structures normal. IMPRESSION: 1. New area of consolidation medial right lung base. 2. Atelectasis left base. Follow-up recommended. Dictated by: Dictated on workstation # [id number]
--- NOTE | 2019-06-15 18:44 | Diagnostic Imaging Report ---
PROCEDURE: CT head without contrast. TECHNIQUE: Multiple contiguous axial images were obtained through the brain without the use of intravenous contrast. Auto Exposure Controls were utilized during the CT exam to meet ALARA standards for radiation dose reduction. INDICATION: Abnormal speech and confusion. COMPARISON: None. FINDINGS: Ventricles are normal in size, shape and position. There is no midline shift or mass effect. There is no hemorrhage or evidence of acute ischemia. There is no cerebral edema. No mass is identified. No extra-axial fluid collection. There is some slight chronic microvascular changes in the periventricular white matter. The bony calvarium, paranasal sinuses and mastoids are unremarkable. IMPRESSION: Negative CT head. Dictated by: Dictated on workstation # [id number]
[2019-06-15] MEDS ORDERED: cloNIDine 0.1 MG (CATAPRES) TAB PO ONE (19:00)
[2019-06-15] MEDS ORDERED: cefTRIAXone FOR IV USE 1,000 MG in WATER (STERILE) FOR INJECTION 10 ML IV ONE (19:00)
[2019-06-15 19:40] LABS: BILIRUBIN,URINE NEGATIVE (NEGATIVE); CLARITY,URINE CLEAR; COLOR,URINE YELLOW; GLUCOSE, URINE (UA) NEGATIVE (NEGATIVE); KETONES,URINE NEGATIVE (NEGATIVE); LEUKOCYTE ESTERASE ,URINE NEGATIVE (NEGATIVE); NITRITE,URINE NEGATIVE (NEGATIVE); PROTEIN,URINE NEGATIVE (NEGATIVE)
[2019-06-15 20:02] LABS: BACTERIA,URINE TRACE /HPF
[2019-06-15] MEDS ORDERED: AMOX-358 PO (20:07)
[2019-06-15] MEDS ORDERED: AZIT250T12 PO (20:07)
[2019-06-15 20:15] VITALS: BP 141/92
== END 2019-06-15 20:16 | disposition home or self-care (01) ==
LOC: EDUNIT# 17:43 → ER 17:44
DX: J18.9 Pneumonia, unspecified organism (principal); R47.1 Dysarthria and anarthria; I10 Essential (primary) hypertension; I48.91 Unspecified atrial fibrillation; E78.00 Pure hypercholesterolemia, unspecified; Z79.01 Long term (current) use of anticoagulants; Z77.22 Contact with and (suspected) exposure to environmental tobacco smoke (acute) (chronic)
CPT/HCPCS: 36415; 70450; 71045; 80053; 80320; 81000; 82140; 85025; 93005; 96374

== ENCOUNTER → 2019-09-21 | Outpatient (CLI) | payer MEDICARE ==
[~2019-09-21] MED LIST changes: +AMOX-358 PO; +AZIT250T12 PO; +GADOBUTROL 10 MMOL/10 ML (GADAVIST) VIAL IV ONE
[2019-09-21 13:29] LABS: ALBUMIN 4.2 GM/DL (3.2-4.5); CHLORIDE 98 MMOL/L (98-107); POTASSIUM 4.5 MMOL/L (3.6-5.0); SODIUM 129 MMOL/L (135-145)
[2019-09-21 13:30] LABS: CALCIUM 9.6 MG/DL (8.5-10.1)
[2019-09-21 13:31] LABS: GLUCOSE 150 MG/DL (70-105); TOTAL PROTEIN 7.8 GM/DL (6.4-8.2)
[2019-09-21 13:32] LABS: CARBON DIOXIDE 23 MMOL/L (21-32)
[2019-09-21 13:33] LABS: BILIRUBIN,TOTAL 0.5 MG/DL (0.1-1.0)
[2019-09-21 13:35] LABS: ALKALINE PHOSPHATASE 45 U/L (40-136); GFR ESTIMATED > 60
[2019-09-21 13:36] LABS: BUN/CREATININE RATIO 5
[2019-09-21 13:38] LABS: ALANINE AMINOTRANSFERASE 20 U/L (0-55)
--- NOTE | 2019-09-21 14:16 | Diagnostic Imaging Report ---
PROCEDURE: MRI lumbar spine. TECHNIQUE: Multiplanar, multisequence MRI of the lumbar spine was performed without contrast. INDICATION: Low back pain. COMPARISON: MRI lumbar spine without contrast from 02/09/2018. FINDINGS: Normal alignment. Vertebral body heights are preserved. There is increasing edema of the endplates about the L4-L5 disc space and L3-L4 disc space, most consistent with Modic type I degenerative endplate changes. No convincing destructive endplate changes are identified. No abnormal signal in the conus which terminates at L1-L2. Normal morphology of the cauda equina. There has been overall progression of epidural lipomatosis, contributing to the spinal canal stenosis described below level by level. L1-L2: No substantial spinal canal or lateral recess narrowing. Facet arthropathy contributes to mild bilateral neuroforaminal narrowing. L2-L3: Annular disc bulge combines with ligamentous hypertrophy and facet arthropathy, as well as the epidural lipomatosis, to result in hyjicuow-nd-cxcmxf spinal canal stenosis which has progressed since the prior exam. There is also kgrhaoyx-di-zjslyk bilateral neuroforaminal narrowing which is stable. L3-L4: Annular disc bulge and ligamentous hypertrophy combine with facet arthropathy and epidural lipomatosis to result in at least moderate spinal canal stenosis. Ocrcetly-jd-tmhsfo bilateral neuroforaminal narrowing is stable. L4-L5: Central disc protrusion on top of an overlying annular disc bulge combines with the epidural lipomatosis to result in jpxfmnap-mh-wzalpx spinal canal stenosis. Facet arthropathy also contributes to cibrowvv-qu-pdlntz bilateral neuroforaminal narrowing, stable. L5-S1: No substantial spinal canal or lateral recess narrowing. No neuroforaminal narrowing. IMPRESSION: 1. Interval progression of spondylotic changes which now includes increasing endplate edema at L3-L4 and L4-L5, most compatible with Modic type I degenerative endplate changes. Although osteomyelitis and discitis cannot entirely be excluded, this is considered less likely given the absence of destructive endplate changes. Recommend correlation with clinical scenario. Noncontrast CT and/or postcontrast MRI imaging could be performed to further characterize. 2. Increasing epidural lipomatosis combines with spondylotic changes to result in high-grade spinal canal stenosis at L2-L3, L3-L4, and L4-L5. 3. Multilevel high-grade neuroforaminal narrowing detailed above is generally stable compared to the prior exam. Dictated by: Dictated on workstation # [id number]
--- NOTE | 2019-09-21 14:34 | Diagnostic Imaging Report ---
PROCEDURE: MR imaging of the brain with and without contrast. TECHNIQUE: Multiplanar, multisequence MR imaging of the brain was performed with and without contrast. INDICATION: Memory deficiencies. COMPARISON: None. FINDINGS: The ventricles and cortical sulci are slightly prominent, compatible with age related volume loss. There are focal and confluent areas of abnormal T2 bright signal in the periventricular and subcortical white matter, compatible with small vessel ischemic change. There also appears to be old infarct of the left cerebellar hemisphere, inferiorly. There is no acute infarction. There is no midline shift or mass effect identified. No intraparenchymal or extraaxial hemorrhage or fluid collection is identified. There is no other focal parenchymal abnormality seen. There is no abnormal enhancement seen after the administration of gadolinium. The midline craniocervical anatomy is unremarkable. The major expected intracranial flow voids are seen. There are no focal calvarial lesions. The visualized paranasal sinuses show mild scattered mucosal thickening. Small air-fluid levels are also noted within the sphenoid sinuses. The mastoid air cells are clear. IMPRESSION: 1. No acute intracranial abnormalities. No acute infarction, acute intra-axial hemorrhage, or focal intra-axial mass. 2. 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 3. Paranasal sinus disease. Dictated by: Dictated on workstation # [id number]
== END ==
LOC: CARD 12:05
PROVIDERS: ATTEND Family Medicine
DX: I48.91 Unspecified atrial fibrillation (principal); E87.1 Hypo-osmolality and hyponatremia; R42 Dizziness and giddiness; M47.26 Other spondylosis with radiculopathy, lumbar region; Z91.81 History of falling; R41.82 Altered mental status, unspecified; M48.02 Spinal stenosis, cervical region; J32.9 Chronic sinusitis, unspecified
CPT/HCPCS: 36415; 70553; 72148; 80053; 83880; 83935; 84443; 93306

== ENCOUNTER → 2020-04-01 | Outpatient (CLI) | payer MEDICARE ==
[~2020-04-01] MED LIST changes: +APIX5TAB PO; +FENO134C PO; -GADOBUTROL 10 MMOL/10 ML (GADAVIST) VIAL IV ONE; +MTP100TCR PO; +SPIR50TA4 PO
== END ==
LOC: EDBD 09:00 → CARD 09:00
PROVIDERS: ATTEND Nurse Practitioner Family
DX: I34.0 Nonrheumatic mitral (valve) insufficiency (principal)
CPT/HCPCS: 93306

== ENCOUNTER 2020-04-04 05:43 | Outpatient (RCR) | payer MEDICARE ==
[~2020-04-04] VITALS: Ht 167 cm; Wt 104.5 kg
[~2020-04-04 05:43] MED LIST changes: +RISP3TAB62 PO
== END 2020-04-04 09:33 | disposition home or self-care (01) ==
LOC: EDBD → PREOP 05:43
PROVIDERS: ATTEND Surgery
DX: Z01.818 Encounter for other preprocedural examination (principal); Z86.010 Personal history of colon polyps; Z85.038 Personal history of other malignant neoplasm of large intestine; Z20.828 Contact with and (suspected) exposure to other viral communicable diseases
CPT/HCPCS: 87635

== ENCOUNTER 2020-04-08 11:40 | Day surgery (SDC) | payer MEDICARE ==
[~2020-04-08] VITALS: Ht 167 cm; Wt 104.5 kg
[2020-04-08] MEDS ORDERED: LACTATED RINGERS 1,000 ML IV ONE (11:45)
[2020-04-08] MEDS ORDERED: LACTATED RINGERS 1,000 ML IV STA (11:52)
[2020-04-08 12:00] VITALS: BP 142/91
--- NOTE | 2020-04-08 12:10 | Progress Note-Pre Operative ---
Pre-Operative Progress Note H&P Reviewed The H&P was reviewed, patient examined and no changes noted. Date Seen by Provider: Apr 08, 2020 Time Seen by Provider: 12:10 Date H&P Reviewed: Apr 08, 2020 Time H&P Reviewed: 12:10 Pre-Operative Diagnosis: hx polyps, family hx colon ca EMILIANO SUAZO DO Apr 08, 2020 12:10
[2020-04-08] MEDS ORDERED: MIDAZOLAM 2 MG/2 ML (VERSED) VIAL ONE (12:11)
[2020-04-08] MEDS ORDERED: PROPOFOL INJECTION 50 ML IV ONE (12:11)
[2020-04-08 12:25] VITALS: BP 119/71
[2020-04-08 12:30] VITALS: BP 122/75
--- NOTE | 2020-04-08 12:32 | Progress Note-Post Operative ---
Post-Operative Progess Note Surgeon (s)/Direct Care Supervisor (s) Surgeon EMILIANO SUAZO DO Direct Care Supervisor: na Pre-Operative Diagnosis hx polyps, family hx colon ca Post-Operative Diagnosis colon polpy descending x 2 Procedure & Operative Findings Date of Procedure 04/08/20 Procedure Performed/Findings colonoscopy with hot bx polypectomy x 2 Anesthesia Type per manager heart Estimated Blood Loss Estimated blood loss (mL): none Specimens/Packing Specimens Removed descending x2 EMILIANO SUAZO DO Apr 08, 2020 12:32
--- NOTE | 2020-04-08 12:33 | Discharge Inst-Simple/Standard ---
Discharge Inst-Standard Patient Instructions/Follow Up Plan of Care/Instructions/FU: 2-3weeks Fani Activity as Tolerated: Yes Discharge Diet: Regular Diet EMILIANO SUAZO DO Apr 08, 2020 12:33
[2020-04-08 12:35] VITALS: BP 122/75
[2020-04-08 13:10] VITALS: BP 120/76
--- NOTE | 2020-04-08 14:49 | Anesthesia-General Post-Op ---
MAC Patient Condition Mental Status/LOC: Same as Preop Cardiovascular: Satisfactory Nausea/Vomiting: Absent Respiratory: Satisfactory Pain: Controlled Complications: Absent Post Op Complications Complications None Follow Up Care/Instructions Patient Instructions None needed. Anesthesiology Discharge Order Discharge Order Patient is doing well, no complaints, stable vital signs, no apparent adverse anesthesia problems. No complications reported per nursing. LEON PUENTE CRNA Apr 08, 2020 14:49
--- NOTE | 2020-04-08 17:21 | OPERATIVE REPORT ---
DATE OF SERVICE: 04/08/2020 PREOPERATIVE DIAGNOSES: Family history of colon cancer and personal history of colon polyps. POSTOPERATIVE DIAGNOSIS: Colon polyps. PROCEDURES PERFORMED: Colonoscopy with hot biopsy polypectomy x2. SURGEON: Emiliano Mohr DO. ANESTHESIA: Per MAIL CLERKS SUPERVISOR. ESTIMATED BLOOD LOSS: None. COMPLICATIONS: None. INDICATIONS: The patient is a 64-year-old male needing colonoscopy. He understands the risks and benefits of the procedure and wished to proceed with procedure. Consent was signed in the chart. DESCRIPTION OF PROCEDURE: The patient was taken to the endoscopy suite and placed in a left lateral recumbent position. Timeout was performed. Digital rectal exam was performed. There were no palpable polyps, masses or ulcerations. Scope was inserted in the rectum and advanced all the way to the cecum with minimal difficulty. Prep was adequate. Scope was then slowly retracted back. There were no polyps, masses or ulcerations within the cecum, ascending and transverse colon. In the descending colon, two small polyps were present, which hot biopsy polypectomies were performed. Scope was then continuously retracted back. No polyps, masses or ulcerations within the sigmoid and rectum. Scope was retroflexed in the rectum, noting no other pathology. Scope was returned to its normal position, slowly withdrawn until completely removed. The patient tolerated procedure well without any complications and was taken to recovery room in stable condition. RECOMMENDATIONS: The patient will need repeat colonoscopy in 5 years, any issues before that be seen at that time. The patient will follow up on pathology. Job ID: [id number] DocumentID: [id number] Dictated Date: 04/08/2020 12:35:27 Telephonic Nurse Case Manager Date: 04/08/2020 17:20:30 Dictated By: EMILIANO MOHR DO
== END 2020-04-08 13:10 | disposition home or self-care (01) ==
LOC: EDBD → ENDO 11:40
PROVIDERS: ATTEND Surgery
DX: D12.4 Benign neoplasm of descending colon (principal); I10 Essential (primary) hypertension; I48.91 Unspecified atrial fibrillation; M06.9 Rheumatoid arthritis, unspecified; F31.9 Bipolar disorder, unspecified; F20.9 Schizophrenia, unspecified; E78.5 Hyperlipidemia, unspecified; I48.0 Paroxysmal atrial fibrillation; E87.1 Hypo-osmolality and hyponatremia; E66.9 Obesity, unspecified; Z68.37 Body mass index [BMI] 37.0-37.9, adult; F17.210 Nicotine dependence, cigarettes, uncomplicated; Z79.01 Long term (current) use of anticoagulants; Z79.02 Long term (current) use of antithrombotics/antiplatelets; Z79.899 Other long term (current) drug therapy; Z86.010 Personal history of colon polyps; Z80.0 Family history of malignant neoplasm of digestive organs
CPT/HCPCS: 88305

== ENCOUNTER → 2022-02-16 | Outpatient (CLI) | payer MEDICARE ==
[~2022-02-16] MED LIST changes: +CATHETER FLUSH 10 ML SYR IVP PRN; -FENO134C PO; +FENO134C21 PO; +REGADENOSON 0.4 MG/5 ML SYR (LEXISCAN) IV ONE
[2022-02-16 08:57] VITALS: BP 189/99
--- NOTE | 2022-02-16 20:20 | STRESS TEST ---
DATE OF SERVICE: 02/16/2022 RESTING AND POST REGADENOSON TECHNETIUM-99M TETROFOSMIN SPECT CT IMAGING ORDERING PHYSICIAN: Dr. Fleming. CLINICAL DIAGNOSIS: Shortness of breath. Baseline images were carried out after injection of 10.22 mCi of technetium-99m Tetrofosmin. This was followed by 0.4 mg Regadenoson and 30.98 mCi of technetium-99m Tetrofosmin for stress imaging. The electrocardiogram showed sinus rhythm at baseline. 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 The electrocardiogram did not change significantly with the Regadenoson infusion. Review of images at rest and following stress does not indicate any distinct perfusion defects consistent with significant myocardial ischemia or infarction. Gated images show a normal regional wall motion. The diaphragmatic wall of the left ventricle appears attenuated both at rest and following the Regadenoson infusion. It shows normal motion at rest and following Regadenoson infusion. Left ventricular ejection fraction is calculated to be 68%. CONCLUSIONS: 1. No evidence of significant myocardial ischemia or infarction on this study. 2. Normal regional wall motion. 3. Normal global left ventricular systolic function with a calculated ejection fraction of 68%. Job ID: [id number] DocumentID: [id number] Dictated Date: 02/16/2022 14:05:21 Field Recorder Date: 02/16/2022 20:20:26 Dictated By: DEE FLEMING MD, MA, FACP, FACC, MTDD
== END ==
LOC: CARD 08:00
PROVIDERS: ATTEND Internal Medicine Cardiovascular Disease
DX: R06.09 Other forms of dyspnea (principal)
CPT/HCPCS: 78452; 93017; A9502

== ENCOUNTER → 2022-04-12 | Outpatient (CLI) | payer MEDICARE ==
[~2022-04-12] MED LIST changes: -CATHETER FLUSH 10 ML SYR IVP PRN; -REGADENOSON 0.4 MG/5 ML SYR (LEXISCAN) IV ONE
== END ==
LOC: CARD 10:30
PROVIDERS: ATTEND Internal Medicine Cardiovascular Disease
DX: I35.1 Nonrheumatic aortic (valve) insufficiency (principal); I51.7 Cardiomegaly
CPT/HCPCS: 93306

== ENCOUNTER 2022-12-22 06:16 | Outpatient (CLI) | payer MEDICARE ==
[~2022-12-22] VITALS: Ht 167.6 cm; Wt 94.5 kg
[~2022-12-22 06:16] MED LIST changes: +PARO-135 PO; -PARO40TA PO
[2022-12-22] MEDS ORDERED: TRH2T PO (10:40)
== END 2022-12-22 10:55 | disposition home or self-care (01) ==
LOC: PREOP 06:16
PROVIDERS: ATTEND Surgery
DX: Z01.818 Encounter for other preprocedural examination (principal)

== ENCOUNTER 2022-12-30 11:31 | Day surgery (SDC) | payer MEDICARE ==
[~2022-12-30] VITALS: Ht 167.6 cm; Wt 94.5 kg
[~2022-12-30 11:31] MED LIST changes: +TRH2T PO
[2022-12-30] MEDS ORDERED: LACTATED RINGERS 1,000 ML IV STA (11:38)
[2022-12-30] MEDS ORDERED: MIDAZOLAM INJ 2 MG/2 ML VIAL ONE (11:48)
[2022-12-30] MEDS ORDERED: PROPOFOL INJECTION 50 ML IV ONE (11:48)
[2022-12-30 11:51] VITALS: BP 150/87
--- NOTE | 2022-12-30 12:02 | Progress Note-Pre Operative ---
Pre-Operative Progress Note Date H&P Reviewed: Dec 30, 2022 Time H&P Reviewed: 12:02 History & Physical: H&P Reviewed, Patient Examed, No changes noted Pre-Operative Diagnosis: hx polyps EMILIANO SUAZO DO Dec 30, 2022 12:02
--- NOTE | 2022-12-30 12:34 | Progress Note-Post Operative ---
Post-Operative Progess Note Surgeon (s)/Director Employee Safety And Health (s) Surgeon EMILIANO SUAZO DO Director Employee Safety And Health: none Pre-Operative Diagnosis hx polyps Post-Operative Diagnosis colon polyps internal hemorroid Procedure & Operative Findings Date of Procedure 12/30/22 Procedure Performed/Findings colonoscopy with hot bx polypectomy x4 Anesthesia Type per PAINTER ROUGH Estimated Blood Loss Estimated blood loss (mL): none Specimens/Packing Specimens Removed colon polyps EMILIANO SUAZO DO Dec 30, 2022 12:34
--- NOTE | 2022-12-30 12:36 | Discharge Inst-Simple/Standard ---
Discharge Inst-Standard Patient Instructions/Follow Up Plan of Care/Instructions/FU: morenita 2 weeks Activity as Tolerated: Yes Discharge Diet: Regular Diet EMILIANO SUAZO DO Dec 30, 2022 12:36
[2022-12-30 12:37] VITALS: BP 125/73
[2022-12-30 12:42] VITALS: BP 130/84
[2022-12-30 13:00] VITALS: BP 131/80
[2022-12-30 13:10] VITALS: BP 131/80
--- NOTE | 2022-12-30 13:26 | Anesthesia-General Post-Op ---
MAC Patient Condition Mental Status/LOC: Same as Preop Cardiovascular: Satisfactory Nausea/Vomiting: Absent Respiratory: Satisfactory Pain: Controlled Complications: Absent Post Op Complications Complications None Follow Up Care/Instructions Patient Instructions None needed. Anesthesiology Discharge Order Discharge Order Patient is doing well, no complaints, stable vital signs, no apparent adverse anesthesia problems. No complications reported per nursing. LASHA TANG CRNA Dec 30, 2022 13:26
--- NOTE | 2022-12-30 17:12 | OPERATIVE REPORT ---
DATE OF SERVICE: 12/30/2022 PREOPERATIVE DIAGNOSIS: History of polyps. POSTOPERATIVE DIAGNOSES: Colon polyps, internal hemorrhoid. SURGEON: Emiliano Mohr DO ANESTHESIA: Per [employer] SERVICE SPECIALIST. ESTIMATED BLOOD LOSS: None. COMPLICATIONS: None. PROCEDURE: Colonoscopy with hot biopsy polypectomy x4. INDICATIONS: The patient is a 67-year-old male with history of polyps. He understands risks and benefits of procedure and wished to proceed. Consent was signed in chart. DESCRIPTION OF PROCEDURE: The patient was taken to endoscopy suite, placed in left lateral recumbent position. Timeout was performed. Digital rectal exam was performed. Internal hemorrhoid. No palpable polyps, masses or ulcerations. Scope was inserted in the rectum, advanced all the way to the cecum with minimal difficulty. Prep was adequate with irrigation and suction. A polyp in the cecum, Hot biopsy polypectomy was performed. Scope was then continued to be slowly retracted back. No polyps, masses or ulcerations within the ascending colon. In the transverse colon, a small polyp was present, which hot biopsy polypectomy was performed. Scope was then continuously retracted back into the descending colon where 2 polyps were present, which hot biopsy polypectomy was performed. Scope was then continuously retracted back. No polyps, masses or ulcerations within the sigmoid and rectum. The scope was retroflexed noting no other pathology except for the hemorrhoids. Scope was returned to its normal position, slowly withdrawn until completely removed. The patient tolerated the procedure well without any complications, taken to recovery room in stable condition. RECOMMENDATIONS: The patient will need repeat colonoscopy in 5 years. Any issues before that, be seen at that time. The patient with internal hemorrhoid. This bothers him and this would likely need to be excised. Job ID: [id number] DocumentID: [id number] Dictated Date: 12/30/2022 12:36:32 Extras Casting Director Date: 12/30/2022 17:09:00 Dictated By: EMILIANO MOHR DO
== END 2022-12-30 13:10 | disposition home or self-care (01) ==
LOC: ENDO 11:31
PROVIDERS: ATTEND Surgery
DX: Z12.11 Encounter for screening for malignant neoplasm of colon (principal); D12.3 Benign neoplasm of transverse colon; D12.4 Benign neoplasm of descending colon; K63.5 Polyp of colon; K64.8 Other hemorrhoids; E66.9 Obesity, unspecified; Z68.33 Body mass index [BMI] 33.0-33.9, adult; F17.210 Nicotine dependence, cigarettes, uncomplicated
CPT/HCPCS: 87636